=== PATIENT | male | born 1975 | race Caucasian/White ===

== ENCOUNTER 2020-12-28 23:08 | Emergency (ER) | payer BC, SELFPAY ==
[2020-12-28 23:08] VITALS: BP 120/94; PULSE 114; RESP 18; TEMP 36.6; O2SAT 97; BMI 27.0
[2020-12-28] MEDS: Ketorolac 60 MG/2 ML Vial IM (23:34)
--- NOTE | 2020-12-28 23:39 | RAD_ITS ---
EXAM: XR LEFT RIBS AND AP CHEST, 3 OR MORE VIEWS : 1975 CLINICAL INDICATION: left sided rib pain after a kick ball game. pt states ribs hurt while lying down. TECHNIQUE: Frontal and oblique views of the left ribs and frontal view of the chest. This report was created using [employer] report generation technology. COMPARISON: None. FINDINGS: LUNGS AND PLEURAL SPACES: Unremarkable. No consolidation or edema. No pneumothorax. No effusion. HEART: Unremarkable. Cardiac silhouette not enlarged. MEDIASTINUM: Central airways and mediastinal contour are unremarkable. BONES/JOINTS: Unremarkable. No evidence of displaced rib fractures. RAD/Ribs Uni Min 3V w/PA Chest IMPRESSION: Negative chest and left ribs series. at 0005 Reported and signed by: Devin Trotter MD Electronically Signed: Devin Trotter MD at 0:04 EDT Tel , Service support ,
--- NOTE | 2020-12-29 00:15 | EX.ED.GENINJ ---
HPI History of Present Illness Chief Complaint: Other, Pain/Inj Informant: patient Narrative Narrative: 45-year-old male states that about a week ago he was playing kickball and he dove headfirst towards the base. He states that he has sore bilateral shoulders. He also has had chest discomfort/pain. He was letting it heal up and was taking it easy this weekend. When he went to lay down in bed tonight he felt a pop in the left lower anterior chest he became concerned and came to emergency. PFSH PFSH no medical history Home Medications hydrocodone-acetaminophen 1 tab PO Q6H PRN PRN 3 Days #12 tablet 12/29/20 [Rx Last Taken Unknown] naproxen 500 mg PO BID #14 tab 12/29/20 [Rx Last Taken Unknown] Allergy/AdvReac Type Severity Reaction Status Date / Time No Known Allergies Allergy Verified 12/28/20 23:11 Social History (Updated 12/29/20 @ 00:[address] Grant Miller, DO) Smoking Status: Never smoker substance use type: does not use ROS ROS ED Constitutional Constitutional ED: Denies chills or weight loss Eyes Eyes: Denies change in vision or diplopia ENT ENT ED: Denies ear pain, rhinorrhea or sore throat Cardiovascular Cardiovascular: Reports chest pain; Denies orthopnea, palpitations or racing heartbeat Respiratory/Chest Respiratory/Chest: Denies cough, dyspnea or orthopnea Gastrointestinal Gastrointestinal: Denies abdominal pain, diarrhea, nausea or vomiting Genitourinary Genitourinary ED: Denies dysuria, hematuria or urinary frequency Musculoskeletal Musculoskeletal: Reports other Details: Bilateral shoulder pain ; Denies arthralgias or myalgias Integumentary Denies abscess or rash Neurologic Neurologic: Denies headache(s) or weakness Psychiatric Psychiatric: Denies anxiety, depression, suicidal ideation or suicidal thoughts Endocrine Endocrinology: Denies polydipsia, polyphagia or polyuria Allergic/Immunologic Allergic/Immunologic ED: Denies mouth swelling, tongue swelling or urticaria EXAM Physical Exam Const Vital Signs: 12/28/20 23:08 12/28/20 23:58 Temperature 97.9 F Temperature Source Temporal Pulse Rate 114 H Respiratory Rate 18 Respiratory Effort Normal Respiratory Pattern Normal Blood Pressure 120/94 H Blood Pressure Mean 102 Pulse Ox 97 Oxygen Delivery Method Room Air Positive well nourished and well developed General Appearance ED: well developed HEENT Reports normocephalic, head/scalp atraumatic and moist mucous membranes Eyes PERRL and EOMs intact bilaterally Neck no lymphadenopathy, supple and no JVD Chest Wall Chest Narrative: Patient has tenderness to palpation along the left lower anterior costochondral border around rib 9 and 10. There is no significant deformity. Resp normal respiratory effort and clear to auscultation bilaterally Cardio regular rate, regular rhythm and no murmurs GI normal to inspection, nondistended, normoactive bowel sounds and non-tender Palpation: soft Back/Spine no CVA tenderness and normal ROM Extremity Extremity Narrative: Patient has painful range of motion of the bilateral shoulders but full motion. Negative empty beer can test. Negative apprehension test. General Extremety ED: Negative for edema General Extremity: Negative for edema Neuro oriented x3 and CN's II-XII intact bilaterally Sensorium / Orientation: alert Motor Exam: strength 5/5 throughout Psych mental status grossly normal Mood & Affect: Negative for depressed or tearful Skin no rashes or lesions noted and no wounds MDM MDM MDM Narrative Medical decision making narrative: My interpretation of the rib series is no acute fracture. I suspect the patient had a costochondral separation. Patient received a dose of Toradol. I will write him pain medication. Follow-up with orthopedics if not improving Radiography Diagnostic Testing: Radiology Impression Ribs w/Chest X-Ray 12/28/20 23:39 IMPRESSION: Negative chest and left ribs series. at 0005 Reported and signed by: Devin Trotter MD Electronically Signed: Devin Trotter MD at 0:04 EDT Tel , Service support , Discharge Plan Triage Chief Complaint: Other, Pain/Inj ED Provider: Grant Miller Dx/Rx/DC Orders Clinical Impression: Costochondral separation Instructions: ED Contusion, Rib Prescriptions: New hydrocodone-acetaminophen [hydrocodone-acetaminophen] 1 TABLET tablet 1 tab PO Q6H PRN PRN (Reason: Pain) 3 Days Qty: 12 RF: 0 naproxen 500 MG tablet 500 mg PO BID Qty: 14 RF: 0 Disposition Disposition: Home, self care
[2020-12-29 00:32] VITALS: BP 118/60; PULSE 92; RESP 18; O2SAT 96
== END 2020-12-29 00:34 | disposition home or self-care (01) ==
PROVIDERS: Emergency Provider Emergency Medicine
DX: S23.41XA Sprain of ribs, initial encounter (principal); Y93.6A Activity, physical games generally associated with school recess, summer camp and children
CPT/HCPCS: 71101; 96372; 99282

== ENCOUNTER 2021-09-12 20:41 | Emergency (ER) | payer BC, SELFPAY ==
[2021-09-12 20:42] VITALS: BP 117/90; PULSE 108; RESP 16; TEMP 36.2; O2SAT 98; BMI 26.6
--- NOTE | 2021-09-12 20:54 | EX.ED.UPPERE ---
HPI History of Present Illness Chief Complaint: Upper Extremity Injury Narrative Narrative: Patient presents with pain and swelling of his left elbow that began today. He just noticed it. He states he went out to have dinner with his friends and was wearing a coat. He did have his elbows on the table. He denies any fall or anything, but noticed a large amount of swelling around his left elbow. He denies any fevers or chills. He did not fall onto the area with a major trauma. He is right-hand dominant. PFSH PFSH Home Medications ibuprofen 600 mg PO Q8H PRN PRN #20 tab 09/12/21 [Rx Last Taken Unknown] Allergy/AdvReac Type Severity Reaction Status Date / Time No Known Allergies Allergy Verified 09/12/21 20:44 Social History Smoking Status: Never smoker substance use type: does not use ROS ROS ED ROS Narrative Constitutional: No fever, no chills. HEENT: No sore throat. No neck pain. No loss of vision. No rhinorrhea. Cardiovascular: No chest pain. No palpitations. No pedal edema. Respiratory: No cough, no shortness of breath. Abdominal: No abdominal pain. No nausea. No vomiting. Genitourinary: No dysuria. No hematuria. Musculoskeletal: No myalgias. Left elbow pain, and swelling. He states that starting to feel stiff. Neurologic: No headaches. No dizziness. No lightheadedness. Skin: No rash. No change in color. Psychiatric: No depression. No anxiety. EXAM Physical Exam Narrative Exam Narrative: Afebrile. Vital signs noted. HEENT: Normocephalic. Atraumatic. PERRL, EOMI. Neck soft and supple. No point tenderness or step off. Cardiovascular: Regular rate and rhythm. No murmurs, rubs, or gallops appreciated. Respiratory: No tachypnea. Lungs clear to auscultation bilaterally. Gastrointestinal: Abdomen soft, nontender, with normoactive bowel sounds. No rebound or guarding. Neurological: Awake. Alert. Nonfocal, nonlateralizing. Skin: No rash. Normal color. No pallor. Musculoskeletal: No pedal edema. Positive swelling left olecranon bursa, large amount of swelling without erythema. Able to flex and extend forearm. Pronation and supination intact. Palpable radial pulse. Const Vital Signs: 09/12/21 20:42 Temperature 97.2 F L Temperature Source Temporal Pulse Rate 108 H Respiratory Rate 16 Blood Pressure 117/90 H Blood Pressure Mean 99 Pulse Ox 98 Oxygen Delivery Method Room Air MDM MDM MDM Narrative Medical decision making narrative: I do feel that this may be olecranon bursitis from repeated microtrauma. He denies being on blood thinners so I do not think that is a spontaneous hematoma. X-rays were obtained of the left elbow. I will discuss the patient with Dr. Juan on-call for orthopedics. X-ray is negative for fracture. There is soft tissue swelling about the olecranon process. Dr. Juan suggested an Juan wrap, and ibuprofen 600 mg 3 times a day. He will follow up with him in the office for possible drainage of the olecranon bursitis. Return instructions were reviewed. Disposition is discharged home in stable condition. Discharge Plan Triage Chief Complaint: Upper Extremity Injury ED Provider: Tye Viramontes Dx/Rx/DC Orders Clinical Impression: Olecranon bursitis Instructions: ED Bursitis Elbow Olecranon Prescriptions: New ibuprofen 600 mg tablet 600 mg PO Q8H PRN PRN (Reason: pain) Qty: 20 RF: 0 Primary Care Provider: Mery Givens Referrals: Mery Givens DO [Primary Care Provider] - Wilfredo Juan MD [STAFF PHYSICIAN] - 2 Days Disposition Disposition: Home, Self Care
--- NOTE | 2021-09-12 21:00 | RAD_ITS ---
EXAM: XR LEFT ELBOW COMPLETE, 3 OR MORE VIEWS : 1975 CLINICAL INDICATION: pain, swelling TECHNIQUE: Frontal, lateral and oblique views of the left elbow. This report was created using [employer] report generation technology. COMPARISON: None. FINDINGS: BONES/JOINTS: Unremarkable. There is no displacement of the anterior or posterior fat pads. No acute fracture. No subluxation. Normal alignment. Preservation of the joint space. No destructive or sclerotic lesions. SOFT TISSUES: There is soft tissue swelling over the olecranon. No radiopaque foreign body. RAD/Elbow min 3 Views IMPRESSION: Soft tissue swelling with no osseous abnormality. at 2127 Reported and signed by: Devin Trotter MD Electronically Signed: Devin Trotter MD at 21:26 EST ,
[2021-09-12 21:58] VITALS: BP 123/82; PULSE 96; RESP 18
== END 2021-09-12 21:59 | disposition home or self-care (01) ==
PROVIDERS: Emergency Provider Emergency Medicine; Visit Provider Emergency Medicine
DX: M70.22 Olecranon bursitis, left elbow (principal)
CPT/HCPCS: 73080; 99283

== ENCOUNTER → 2025-04-16 | Outpatient (CLI) | payer OTHER, SELFPAY ==
--- OUTSIDE RECORDS SUMMARY | 2025-04-16 06:52 | XMS RPT_ITS | CCD ---
Author Organization [facility] Care Team Providers Care Laboratory Courier Name Role Phone Unavailable Primary Care Provider Taye WELLS DO, DR BAZAN Primary Care Physician PRISCILLA CHAVEZ, DR BAZAN Attending Unavailable PRISCILLA CHAVEZ, DR BAZAN Primary Care Unavailable PRISCILLA CHAVEZ, DR BAZAN Primary Care Unavailable MUKESH GAMBINO, DR CARMICHAEL Attending Taye WELLS DO, DR BAZAN Attending Unavailable PRISCILLA CHAVEZ, DR BAZAN Primary Care Unavailable Medications Current Medications Medication Drug Class(es) Dates Sig (Normalized) Sig (Original) methylPREDNISolone Dosepak 4 mg tablet (1 source) Start: 09-15-2021 End: 09-21-2021 methylPREDNISolone Dosepak 4 mg tablet 1 packet(s), Oral, qDay, as directed on package labeling, # 21 tab(s), 0 Refill(s) Start Date: 09/15/21 Stop Date: 09/21/21 Status: Ordered omeprazole 20 mg delayed release oral capsule (4 sources) Proton Pump Inhibitor Start: 12-30-2023 omeprazole 20 mg oral delayed release capsule Dose : 20 mg = 1 cap(s), Oral, qDay, # 90 cap(s), 0 Refill(s), Pharmacy: [facility]/pharmacy #[id number], 174, cm, 12/30/23 10:19:00 EDT, Height, kg, 12/30/23 10:19:00 EDT, Dosing Weight Start Date: 12/30/23 Status: Ordered Quantity: 90.0 Unit: cap(s) Repeat number: 1 Start: 02-06-2020 End: 05-06-2020 omeprazole 20 mg oral delaye d release capsule Dose : 20 mg = 1 cap(s), Oral, qDay, # 30 cap(s), 2 Refill(s), Pharmacy: [facility] GERD (gastroesophageal reflux disease), 174.5, cm, 02/06/20 15:48:00 EDT, Height, kg, 02/06/20 15:48:00 EDT, Dosing Weight Start Date: 02/06/20 Stop Date: 05/06/20 Status: Ordered Problems Problem Classification Problem Date Documented Date Episodic/Chronic Disorders of teeth and jaw (5 sources) Dental caries 04-25-2020 Episodic Esophageal disorders (5 sources) Gastroesophageal reflux disease 04-25-2020 Chronic Other screening for suspected conditions (not mental disorders or infectious disease) (2 sources) Encounter for screening for malignant neoplasm of prostate; Translations: [Screening for malignant neoplasm done] Onset: 01-17-2025 Episodic Results Test Name Value Interpretation Reference Range Facility .Auto Diffon 01-17-2025 Basophil, Absolute 0.0 10 3/mcL Normal 0.0-0.3 [facility] Comment on above: Performed By: #### L IPID, CBC, ADIFF, ANEU, PSA, GFR, CMP #### [address] [address] Basophils/100 WBC (Bld) 0.3 % Normal 0.0-2.5 [facility] Comment on above: Performed By: #### L IPID, CBC, ADIFF, ANEU, PSA, GFR, CMP #### [address] [address] Eosinophil, Absolute 0.0 10 3/mcL Normal 0.0-0.7 [facility] Comment on above: Performed By: #### L IPID, CBC, ADIFF, ANEU, PSA, GFR, CMP #### [address] [address] Eosinophils/100 WBC (Bld) 0.7 % Normal 0.0-6.0 [facility] Comment on above: Performed By: #### L IPID, CBC, ADIFF, ANEU, PSA, GFR, CMP #### [address] [address] Lymphocyte, Absolute 1.7 10 3/mcL Normal 0.9-4.3 [facility] Comment on above: Performed By: #### L IPID, CBC, ADIFF, ANEU, PSA, GFR, CMP #### [address] [address] Lymphocytes/100 WBC (Bld) 25.6 % Normal 20.0-40.0 [facility] Comment on above: Performed By: #### L IPID, CBC, ADIFF, ANEU, PSA, GFR, CMP #### [address] [address] Monocyte, Absolute 0.6 10 3/mcL Normal 0.1-1.4 [facility] Comment on above: Performed By: #### L IPID, CBC, ADIFF, ANEU, PSA, GFR, CMP #### [address] [address] Monocytes/100 WBC (Bld) 9.8 % Normal 2.0-13.0 [facility] Comment on above: Performed By: #### L IPID, CBC, ADIFF, ANEU, PSA, GFR, CMP #### [address] [address] Neutrophils/100 WBC (Bld) 63.6 % Normal 50.0-75.0 [facility] Comment on above: Performed By: #### L IPID, CBC, ADIFF, ANEU, PSA, GFR, CMP #### [address] [address] .GFRon 01-17-2025 Estimated Glomerular Filtration Rate 69 ml/min/1.73sqm Normal [facility] Comment on above: Result Comment: Stages of Chronic Kidney Disease (CKD) Stage Description eGFR(ml/min/1.73 sq.m.) CKD 1 Normal kidney function or >=90 normal kindney function with possible kidney damage (ex. Proteinuria) CKD 2 Kidney damage with mild loss 60-89 of kidney function CKD 3a Mild to moderate loss of kidney 45-59 function CKD 3b Moderate to severe loss of 30-44 of kindey function CKD 4 Severe loss of kidney function 15-29 CKD 5 Kidney failure <15 Note: (go live 2024) the eGFR calculation was updated to the 2020 CKD-EPI creatinine equation without a race factor to calculate the eGFR results. Performed By: #### L IPID, CBC, ADIFF, ANEU, PSA, GFR, CMP #### [place] [address] .NEUABSon 01-17-2025 Neutrophil, Absolute 4.1 10 3/mcL Normal 2.3-8.1 [facility] Comment on above: Performed By: #### L IPID, CBC, ADIFF, ANEU, PSA, GFR, CMP #### [place] [address] CBCon 01-17-2025 Erythrocyte distribution width (RBC) [Ratio] 12.7 % Normal 11.5-15.5 [facility] Comment on above: Performed By: #### L IPID, CBC, ADIFF, ANEU, PSA, GFR, CMP #### [place] [address] Hematocrit (Bld) [Volume fraction] 44.4 % Normal 40.0-52.0 [facility] Comment on above: Performed By: #### L IPID, CBC, ADIFF, ANEU, PSA, GFR, CMP #### [place] [address] Hgb 15.2 G/dL Normal 13.0-17.5 [facility] Comment on above: Performed By: #### L IPID, CBC, ADIFF, ANEU, PSA, GFR, CMP #### [place] [address] MCH (RBC) [Entitic mass] 30.1 pg Normal 27.0-33.0 [facility] Comment on above: Performed By: #### L IPID, CBC, ADIFF, ANEU, PSA, GFR, CMP #### [place] [address] MCHC 34.2 G/dL Normal 32.0-36.0 [facility] Comment on above: Performed By: #### L IPID, CBC, ADIFF, ANEU, PSA, GFR, CMP #### [address] [address] MCV (RBC) [Entitic vol] 88.0 fL Normal 81.0-100.0 [facility] Comment on above: Performed By: #### L IPID, CBC, ADIFF, ANEU, PSA, GFR, CMP #### [address] [address] Platelet 207 10 3/mcL Normal 150-450 [facility] Comment on above: Performed By: #### L IPID, CBC, ADIFF, ANEU, PSA, GFR, CMP #### [address] [address] Platelet mean volume (Bld) [Entitic vol] 8.4 fL Normal 6.4-10.5 [facility] Comment on above: Performed By: #### L IPID, CBC, ADIFF, ANEU, PSA, GFR, CMP #### [address] [address] RBC 5.04 10 6/mcL Normal 4.50-6.00 [facility] Comment on above: Performed By: #### L IPID, CBC, ADIFF, ANEU, PSA, GFR, CMP #### [address] [address] WBC 6.5 10 3/mcL Normal 4.5-10.8 [facility] Comment on above: Performed By: #### L IPID, CBC, ADIFF, ANEU, PSA, GFR, CMP #### [address] [address] CMPon 01-17-2025 Albumin Level 3.8 G/dL Normal 3.5-5.0 [facility] Comment on above: Performed By: #### L IPID, CBC, ADIFF, ANEU, PSA, GFR, CMP #### [address] [address] Albumin/Globulin [Mass ratio] 1.1 {ratio} Normal 1.1-2.5 [facility] Comment on above: Performed By: #### L IPID, CBC, ADIFF, ANEU, PSA, GFR, CMP #### [address] [address] ALP [Catalytic activity/Vol] 98 U/L Normal 40-135 [facility] Comment on above: Performed By: #### L IPID, CBC, ADIFF, ANEU, PSA, GFR, CMP #### [address] [address] ALT [Catalytic activity/Vol] 42 U/L Normal 16-63 [facility] Comment on above: Performed By: #### L IPID, CBC, ADIFF, ANEU, PSA, GFR, CMP #### [address] [address] AST [Catalytic activity/Vol] 23 U/L Normal 10-40 [facility] Comment on above: Performed By: #### L IPID, CBC, ADIFF, ANEU, PSA, GFR, CMP #### [address] [address] Bili Total 0.8 mg/dL Normal 0.2-1.0 [facility] Comment on above: Result Comment: Use of this assay is not recommended for patients undergoing treatment with eltrombopag due to the potential for falsely elevated results. Performed By: #### L IPID, CBC, ADIFF, ANEU, PSA, GFR, CMP #### [address] [address] BUN/Creatinine Ratio 15 ratio Normal 7-27 [facility] Comment on above: Performed By: #### L IPID, CBC, ADIFF, ANEU, PSA, GFR, CMP #### [address] [address] Calcium [Mass/Vol] 9.0 mg/dL Normal 8.4-10.2 [facility] Comment on above: Performed By: #### L IPID, CBC, ADIFF, ANEU, PSA, GFR, CMP #### [address] [address] Chloride [Moles/Vol] 106 mmol/L Normal 98-107 [facility] Comment on above: Performed By: #### L IPID, CBC, ADIFF, ANEU, PSA, GFR, CMP #### [address] [address] CO2 [Moles/Vol] 26 mmol/L Normal 22-29 [facility] Comment on above: Performed By: #### L IPID, CBC, ADIFF, ANEU, PSA, GFR, CMP #### [address] [address] Creatinine [Mass/Vol] 1.26 mg/dL High 0.67-1.17 [facility] Comment on above: Performed By: #### L IPID, CBC, ADIFF, ANEU, PSA, GFR, CMP #### [place] [address] Electrolyte Balance 9.0 mEq/L Normal 4.0-15.0 [facility] Comment on above: Performed By: #### L IPID, CBC, ADIFF, ANEU, PSA, GFR, CMP #### [address] [address] Globulin 3.5 G/dL Normal 2.7-4.4 [facility] Comment on above: Performed By: #### L IPID, CBC, ADIFF, ANEU, PSA, GFR, CMP #### [address] [address] Glucose [Mass/Vol] 89 mg/dL Normal 70-105 [facility] Comment on above: Performed By: #### L IPID, CBC, ADIFF, ANEU, PSA, GFR, CMP #### [address] [address] Potassium [Moles/Vol] 4.6 mmol/L Normal 3.5-5.1 [facility] Comment on above: Performed By: #### L IPID, CBC, ADIFF, ANEU, PSA, GFR, CMP #### [address] [address] Sodium [Moles/Vol] 141 mmol/L Normal 136-145 [facility] Comment on above: Performed By: #### L IPID, CBC, ADIFF, ANEU, PSA, GFR, CMP #### [facility] [address] [place], [place] [address] Total Protein 7.3 G/dL Normal 6.4-8.2 [facility] Comment on above: Performed By: #### L IPID, CBC, ADIFF, ANEU, PSA, GFR, CMP #### [facility] [address] [place], [place] [address] Urea nitrogen [Mass/Vol] 19 mg/dL High 7-18 [facility] Comment on above: Performed By: #### L IPID, CBC, ADIFF, ANEU, PSA, GFR, CMP #### [place] [address] [place], [place] [address] LABORATORYOrdered By: SYSTEM SYSTEM on 01-17-2025 Albumin BCP dye [Mass/Vol] 3.8 G/dL Normal 3.5 - 5.0 G/dL AO ADM SS Albumin/Globulin [Mass ratio] 1.1 {ratio} Normal 1.1 - 2.5 ratio AO ADM SS ALP [Catalytic activity/Vol] 98 U/L Normal 40 - 135 U/L AO ADM SS ALT With P-5'-P [Catalytic activity/Vol] 42 U/L Normal 16 - 63 U/L AO ADM SS AST With P-5'-P [Catalytic activity/Vol] 23 U/L Normal 10 - 40 U/L AO ADM SS Basophils (Bld) [#/Vol] 0.0 103/mcL Normal 0.0 - 0.3 10^3/mcL AO Workflow SS Basophils/100 WBC (Bld) 0.3 % Normal 0.0 - 2.5 % AO Workflow SS Bilirubin [Mass/Vol] 0.8 mg/dL Normal 0.2 - 1 .0 mg/dL AO ADM SS Comment on above: Interpretive Data: U se of this assay is not recommended for patients undergoing treatment with eltrombopag due to the potential for falsely elevated results. Calcium [Mass/Vol] 9.0 mg/dL Normal 8.4 - 10. 2 mg/dL AO ADM SS Chloride [Moles/Vol] 106 mmol/L Normal 98 - 10 7 mmol/L AO ADM SS CO2 [Moles/Vol] 26 mmol/L Normal 22 - 29 mmol/L AO ADM SS Creatinine [Mass/Vol] 1.26 mg/dL High 0.67 - 1.17 mg/dL AO ADM SS Electrolyte Balance 9.0 mEq/L Normal 4.0 - 15 .0 mEq/L AO ADM SS Eosinophil, Absolute 0.0 103/mcL Normal 0.0 - 0 .7 10^3/mcL AO Workflow SS Eosinophils/100 WBC (Bld) 0.7 % Normal 0.0 - 6.0 % AO Workflow SS Erythrocyte distribution width (RBC) [Ratio] 12.7 % Normal 11.5 - 15.5 % AO Workflow SS Estimated Glomerular Filtration Rate 69 ml/min/1.73sqm Invalid Interpretation Code AO Chemistry S Comment on above: Interpretive Data: Stages of Chronic Kidney Disease (CKD) Stage Description eGFR(ml/min/1.73 sq.m.) CKD 1 Normal kidney function or >=90 normal kindney function with possible kidney damage (ex. Proteinuria) CKD 2 Kidney damage with mild loss 60-89 of kidney function CKD 3a Mild to moderate loss of kidney 45-59 function CKD 3b Moderate to severe loss of 30-44 of kindey function CKD 4 Severe loss of kidney function 15-29 CKD 5 Kidney failure <15 Note: (go live 2024) the eGFR calculation was updated to the 2020 CKD-EPI creatinine equation without a race factor to calculate the eGFR results. Globulin 3.5 G/dL Normal 2.7 - 4.4 G/dL AO ADM SS Glucose [Mass/Vol] 89 mg/dL Normal 70 - 105 mg/dL AO ADM SS Hematocrit (Bld) [Volume fraction] 44.4 % Normal 40.0 - 52.0 % AO Workflow SS Hemoglobin (Bld) [Mass/Vol] 15.2 G/dL Normal 13.0 - 17.5 G/dL AO Workflow SS Lymphocytes (Bld) [#/Vol] 1.7 103/mcL Normal 0.9 - 4.3 10^3/mcL AO Workflow SS Lymphocytes/100 WBC (Bld) 25.6 % Normal 20.0 - 40.0 % AO Workflow SS MCH (RBC) [Entitic mass] 30.1 pg Normal 27.0 - 33.0 pg AO Workflow SS MCHC 34.2 G/dL Normal 32.0 - 36.0 G/dL AO Workflow SS MCV (RBC) [Entitic vol] 88.0 fL Normal 81.0 - 100.0 fL AO Workflow SS Monocytes (Bld) [#/Vol] 0.6 103/mcL Normal 0.1 - 1.4 10^3/mcL AO Workflow SS Monocytes/100 WBC (Bld) 9.8 % Normal 2.0 - 13.0 % AO Workflow SS Neutrophils (Bld) [#/Vol] 4.1 103/mcL Normal 2.3 - 8.1 10^3/mcL AO Workflow SS Neutrophils/100 WBC (Bld) 63.6 % Normal 50.0 - 75.0 % AO Workflow SS Platelet mean volume (Bld) [Entitic vol] 8.4 fL Normal 6.4 - 10.5 fL AO Workflow SS Platelets (Bld) [#/Vol] 207 103/mcL Normal 150 - 450 10^3/mcL AO Workflow SS Potassium [Moles/Vol] 4.6 mmol/L Normal 3.5 - 5.1 mmol/L AO ADM SS Prostate specific Ag [Mass/Vol] 0.44 ng/mL Normal 0.00 - 4.00 ng/mL AO ADM SS Protein [Mass/Vol] 7.3 G/dL Normal 6.4 - 8.2 G/dL AO ADM SS RBC (Bld) [#/Vol] 5.04 106/mcL Normal 4.50 - 6.0 0 10^6/mcL AO Workflow SS Sodium [Moles/Vol] 141 mmol/L Normal 136 - 145 mmol/L AO ADM SS Urea nitrogen [Mass/Vol] 19 mg/dL High 7 - 18 mg/dL AO ADM SS Urea nitrogen/Creatinine [Mass ratio] 15 ratio Normal 7 - 27 ratio AO ADM SS WBC (Bld) [#/Vol] 6.5 103/mcL Normal 4.5 - 10.8 10^3/mcL AO Workflow SS LABORATORYOrdered By: Blas Gaines on 01-17-2025 Cholesterol [Mass/Vol] 163 mg/dL Normal 0 - 200 mg/dL AO ADM SS Comment on above: Interpretive Data: C holesterol Reference Interval: Less than 200 Desirable 200-239 Borderline high risk 240 and above High risk Cholesterol in HDL [Mass/Vol] 55 mg/dL Normal 40 - 60 mg/dL AO ADM SS Cholesterol in LDL [Mass/Vol] 98 mg/dL Normal 0 - 130 mg/dL AO ADM SS Triglyceride [Mass/Vol] 51 mg/dL Normal 0 - 150 mg/dL AO ADM SS Comment on above: Interpretive Data: T riglyceride Reference Interval: Less than 150 Normal 150-199 Borderline high risk 200-499 High risk 500 or higher Very high risk LIPIDon 01-17-2025 Cholesterol [Mass/Vol] 163 mg/dL Normal 0-200 [facility] Comment on above: Result Comment: Chol esterol Reference Interval: Less than 200 Desirable 200-239 Borderline high risk 240 and above High risk Performed By: #### L IPID, CBC, ADIFF, ANEU, PSA, GFR, CMP #### [address] [address] Cholesterol in HDL [Mass/Vol] 55 mg/dL Normal 40-60 [facility] Comment on above: Performed By: #### L IPID, CBC, ADIFF, ANEU, PSA, GFR, CMP #### [address] [address] Cholesterol in LDL [Mass/Vol] 98 mg/dL Normal 0-130 [facility] Comment on above: Performed By: #### L IPID, CBC, ADIFF, ANEU, PSA, GFR, CMP #### [address] [address] Triglyceride [Mass/Vol] 51 mg/dL Normal 0-150 [facility] Comment on above: Result Comment: Trig lyceride Reference Interval: Less than 150 Normal 150-199 Borderline high risk 200-499 High risk 500 or higher Very high risk Performed By: #### L IPID, CBC, ADIFF, ANEU, PSA, GFR, CMP #### [address] [address] PSAon 01-17-2025 Prostate Specific Antigen 0.44 ng/mL Normal 0.00-4.00 [facility] Comment on above: Performed By: #### L IPID, CBC, ADIFF, ANEU, PSA, GFR, CMP #### [address] [address] .Auto Diffon 01-07-2024 Basophil, Absolute 0.0 10 3/mcL Normal 0.0-0.2 [facility] ([place]) Comment on above: Performed By: #### C MP, TSH, PSA, ADIFF, CBC, LIPID, ANEU, GFR #### [address] [address] #### HCV1 #### [address] [address] Basophils/100 WBC (Bld) 0.2 % Normal 0.0-2.5 [facility] ([place]) Comment on above: Performed By: #### C MP, TSH, PSA, ADIFF, CBC, LIPID, ANEU, GFR #### [address] [address] #### HCV1 #### [address] [address] Eosinophil, Absolute 0.0 10 3/mcL Normal 0.0-0.4 [facility] ([place]) Comment on above: Performed By: #### C MP, TSH, PSA, ADIFF, CBC, LIPID, ANEU, GFR #### [address] [address] #### HCV1 #### [address] [address] Eosinophils/100 WBC (Bld) 0.5 % Normal 0.0-7.0 [facility] ([place]) Comment on above: Performed By: #### C MP, TSH, PSA, ADIFF, CBC, LIPID, ANEU, GFR #### [address] [address] #### HCV1 #### [address] [address] Lymphocyte, Absolute 1.8 10 3/mcL Normal 0.8-3.9 [facility] ([place]) Comment on above: Performed By: #### C MP, TSH, PSA, ADIFF, CBC, LIPID, ANEU, GFR #### [address] [address] #### HCV1 #### [address] [address] Lymphocytes/100 WBC (Bld) 26.4 % Normal 10.0-50.0 [facility] ([place]) Comment on above: Performed By: #### C MP, TSH, PSA, ADIFF, CBC, LIPID, ANEU, GFR #### [address] [address] #### HCV1 #### [address] [address] Monocyte, Absolute 0.7 10 3/mcL Normal 0.2-1.0 [facility] ([place]) Comment on above: Performed By: #### C MP, TSH, PSA, ADIFF, CBC, LIPID, ANEU, GFR #### [address] [address] #### HCV1 #### [address] [address] Monocytes/100 WBC (Bld) 10.8 % Normal 1.7-13.0 [facility] ([place]) Comment on above: Performed By: #### C MP, TSH, PSA, ADIFF, CBC, LIPID, ANEU, GFR #### [address] [address] #### HCV1 #### [address] [address] Neutrophils/100 WBC (Bld) 62.1 % Normal 37.0-80.0 [facility] ([place]) Comment on above: Performed By: #### C MP, TSH, PSA, ADIFF, CBC, LIPID, ANEU, GFR #### [address] [address] #### HCV1 #### [address] [address] .GFRon 01-07-2024 GFR 78 ml/min/1.73sqm Normal [facility] ([place]) Comment on above: Result Comment: GFR Population mean for , Non- Americans Ages 20-29 = 116 mL/min/1.73 sq.m. Ages 30-39 = 107 mL/min/1.73 sq.m. Ages 40-49 = 99 mL/min/1.73 sq.m. Ages 50-59 = 93 mL/min/1.73 sq.m. Ages 60-69 = 85 mL/min/1.73 sq.m. Ages 70+ = 75 mL/min/1.73 sq.m. Chronic Kidney Disease: Less than 60 mL/min/1.73 square meters End Stage Renal Disease: Less than 15 mL/min/1.73 square meters Performed By: #### C MP, TSH, PSA, ADIFF, CBC, LIPID, ANEU, GFR #### [address] [address] #### HCV1 #### [address] [address] GFR Non- 64 ml/min/1.73sqm Normal [facility] ([place]) Comment on above: Result Comment: GFR Population mean for , Non- Americans Ages 20-29 = 116 mL/min/1.73 sq.m. Ages 30-39 = 107 mL/min/1.73 sq.m. Ages 40-49 = 99 mL/min/1.73 sq.m. Ages 50-59 = 93 mL/min/1.73 sq.m. Ages 60-69 = 85 mL/min/1.73 sq.m. Ages 70+ = 75 mL/min/1.73 sq.m. Chronic Kidney Disease: Less than 60 mL/min/1.73 square meters End Stage Renal Disease: Less than 15 mL/min/1.73 square meters Performed By: #### C MP, TSH, PSA, ADIFF, CBC, LIPID, ANEU, GFR #### [address] [address] #### HCV1 #### [address] [address] .NEUABSon 01-07-2024 Neutrophil, Absolute 4.2 10 3/mcL Normal 2.9-6.2 [facility] ([place]) Comment on above: Performed By: #### C MP, TSH, PSA, ADIFF, CBC, LIPID, ANEU, GFR #### [address] [address] #### HCV1 #### [address] [address] CBCon 01-07-2024 Erythrocyte distribution width (RBC) [Ratio] 12.8 % Normal 11.5-14.5 [facility] ([place]) Comment on above: Performed By: #### C MP, TSH, PSA, ADIFF, CBC, LIPID, ANEU, GFR #### [address] [address] #### HCV1 #### [place] [address] Hematocrit (Bld) [Volume fraction] 43.4 % Normal 42.0-52.0 [facility] ([place]) Comment on above: Performed By: #### C MP, TSH, PSA, ADIFF, CBC, LIPID, ANEU, GFR #### [place] [address] #### HCV1 #### [place] [address] Hgb 14.8 G/dL Normal 14.0-18.0 [facility] ([place]) Comment on above: Performed By: #### C MP, TSH, PSA, ADIFF, CBC, LIPID, ANEU, GFR #### [place] [address] #### HCV1 #### [place] [address] MCH (RBC) [Entitic mass] 30.2 pg Normal 27.0-31.2 [facility] ([place]) Comment on above: Performed By: #### C MP, TSH, PSA, ADIFF, CBC, LIPID, ANEU, GFR #### [place] [address] #### HCV1 #### [place] [address] MCHC 34.1 G/dL Normal 31.8-35.4 [facility] ([place]) Comment on above: Performed By: #### C MP, TSH, PSA, ADIFF, CBC, LIPID, ANEU, GFR #### [place] [address] #### HCV1 #### [place] [address] MCV (RBC) [Entitic vol] 88.8 fL Normal 80.0-94.0 [facility] ([place]) Comment on above: Performed By: #### C MP, TSH, PSA, ADIFF, CBC, LIPID, ANEU, GFR #### [address] [address] #### HCV1 #### [place] [address] Platelet 208 10 3/mcL Normal 130-400 [facility] ([place]) Comment on above: Performed By: #### C MP, TSH, PSA, ADIFF, CBC, LIPID, ANEU, GFR #### [place] [address] #### HCV1 #### [place] [address] Platelet mean volume (Bld) [Entitic vol] 8.6 fL Normal 7.4-10.4 [facility] ([place]) Comment on above: Performed By: #### C MP, TSH, PSA, ADIFF, CBC, LIPID, ANEU, GFR #### [place] [address] #### HCV1 #### [place] [address] RBC 4.89 10 6/mcL Normal 4.04-6.13 [facility] ([place]) Comment on above: Performed By: #### C MP, TSH, PSA, ADIFF, CBC, LIPID, ANEU, GFR #### [place] [address] #### HCV1 #### [place] [address] WBC 6.7 10 3/mcL Normal 4.6-10.8 [facility] ([place]) Comment on above: Performed By: #### C MP, TSH, PSA, ADIFF, CBC, LIPID, ANEU, GFR #### [place] [address] #### HCV1 #### [address] [address] CMPon 01-07-2024 Albumin Level 4.0 G/dL Normal 3.5-5.0 [facility] ([place]) Comment on above: Performed By: #### C MP, TSH, PSA, ADIFF, CBC, LIPID, ANEU, GFR #### [address] [address] #### HCV1 #### [place] [address] Albumin/Globulin [Mass ratio] 1.3 {ratio} Normal 1.1-2.5 [facility] ([place]) Comment on above: Performed By: #### C MP, TSH, PSA, ADIFF, CBC, LIPID, ANEU, GFR #### [address] [address] #### HCV1 #### [place] [address] ALP [Catalytic activity/Vol] 120 U/L Normal 40-135 [facility] ([place]) Comment on above: Performed By: #### C MP, TSH, PSA, ADIFF, CBC, LIPID, ANEU, GFR #### [address] [address] #### HCV1 #### [address] [address] ALT [Catalytic activity/Vol] 48 U/L Normal 16-63 [facility] ([place]) Comment on above: Performed By: #### C MP, TSH, PSA, ADIFF, CBC, LIPID, ANEU, GFR #### [address] [address] #### HCV1 #### [address] [address] AST [Catalytic activity/Vol] 22 U/L Normal 10-40 [facility] ([place]) Comment on above: Performed By: #### C MP, TSH, PSA, ADIFF, CBC, LIPID, ANEU, GFR #### [place] [address] #### HCV1 #### [address] [address] Bili Total 0.9 mg/dL Normal 0.2-1.0 [facility] ([place]) Comment on above: Result Comment: Use of this assay is not recommended for patients undergoing treatment with eltrombopag due to the potential for falsely elevated results. Performed By: #### C MP, TSH, PSA, ADIFF, CBC, LIPID, ANEU, GFR #### [place] [address] #### HCV1 #### [place] [address] BUN/Creatinine Ratio 12 ratio Normal 7-27 [facility] ([place]) Comment on above: Performed By: #### C MP, TSH, PSA, ADIFF, CBC, LIPID, ANEU, GFR #### [place] [address] #### HCV1 #### [place] [address] Calcium [Mass/Vol] 8.9 mg/dL Normal 8.4-10.2 [facility] ([place]) Comment on above: Performed By: #### C MP, TSH, PSA, ADIFF, CBC, LIPID, ANEU, GFR #### [place] [address] #### HCV1 #### [address] [address] Chloride [Moles/Vol] 106 mmol/L Normal 98-107 [facility] ([place]) Comment on above: Performed By: #### C MP, TSH, PSA, ADIFF, CBC, LIPID, ANEU, GFR #### [address] [address] #### HCV1 #### [address] [address] CO2 [Moles/Vol] 26 mmol/L Normal 22-29 [facility] ([place]) Comment on above: Performed By: #### C MP, TSH, PSA, ADIFF, CBC, LIPID, ANEU, GFR #### [address] [address] #### HCV1 #### [address] [address] Creatinine [Mass/Vol] 1.20 mg/dL Normal 0.70-1.30 [facility] ([place]) Comment on above: Performed By: #### C MP, TSH, PSA, ADIFF, CBC, LIPID, ANEU, GFR #### [address] [address] #### HCV1 #### [address] [address] Electrolyte Balance 9.0 mEq/L Normal 4.0-15.0 [facility] ([place]) Comment on above: Performed By: #### C MP, TSH, PSA, ADIFF, CBC, LIPID, ANEU, GFR #### [address] [address] #### HCV1 #### [address] [address] Globulin 3.0 G/dL Normal [facility] ([place]) Comment on above: Performed By: #### C MP, TSH, PSA, ADIFF, CBC, LIPID, ANEU, GFR #### [address] [address] #### HCV1 #### [address] [address] Glucose [Mass/Vol] 96 mg/dL Normal 70-105 [facility] ([place]) Comment on above: Performed By: #### C MP, TSH, PSA, ADIFF, CBC, LIPID, ANEU, GFR #### [address] [address] #### HCV1 #### [address] [address] Potassium [Moles/Vol] 5.4 mmol/L High 3.5-5.1 [facility] ([place]) Comment on above: Performed By: #### C MP, TSH, PSA, ADIFF, CBC, LIPID, ANEU, GFR #### [place] [address] #### HCV1 #### [place] [address] Sodium [Moles/Vol] 141 mmol/L Normal 136-145 [facility] ([place]) Comment on above: Performed By: #### C MP, TSH, PSA, ADIFF, CBC, LIPID, ANEU, GFR #### [place] [address] #### HCV1 #### [place] [address] Total Protein 7.0 G/dL Normal 6.4-8.2 [facility] ([place]) Comment on above: Performed By: #### C MP, TSH, PSA, ADIFF, CBC, LIPID, ANEU, GFR #### [place] [address] #### HCV1 #### [place] [address] Urea nitrogen [Mass/Vol] 15 mg/dL Normal 7-18 [facility] ([place]) Comment on above: Performed By: #### C MP, TSH, PSA, ADIFF, CBC, LIPID, ANEU, GFR #### [place] [address] #### HCV1 #### [place] [address] HCVon 01-07-2024 Hep C Ab Non-Reactive Normal Non-Reactive [facility] ([place]) Comment on above: Performed By: #### C MP, TSH, PSA, ADIFF, CBC, LIPID, ANEU, GFR #### [place] [address] #### HCV1 #### [place] [address] Hep C Ab Int Normal [facility] ([place]) Comment on above: Result Comment: Nonr eactive: Samples with a value < 0.80 are considered nonreactive (negative) for antibodies to HCV. A negative test result does not exclude the possibility of exposure to or infection with HCV. HCV antibodies may be undetectable in some stages of the infection and in some clinical conditions. See Interp Performed By: #### C MP, TSH, PSA, ADIFF, CBC, LIPID, ANEU, GFR #### [place] [address] [place], [place] [address] #### HCV1 #### [address] [address] LABORATORYOrdered By: SYSTEM SYSTEM on 01-07-2024 Albumin BCP dye [Mass/Vol] 4.0 G/dL Normal 3.5 - 5.0 G/dL AO ADM SS Albumin/Globulin [Mass ratio] 1.3 {ratio} Normal 1.1 - 2.5 ratio AO ADM SS ALP [Catalytic activity/Vol] 120 U/L Normal 40 - 135 U/L AO ADM SS ALT With P-5'-P [Catalytic activity/Vol] 48 U/L Normal 16 - 63 U/L AO ADM SS AST With P-5'-P [Catalytic activity/Vol] 22 U/L Normal 10 - 40 U/L AO ADM SS Basophil, Absolute 0.0 103/mcL Normal 0.0 - 0.2 10^3/mcL AO Workflow SS Basophils/100 WBC (Bld) 0.2 % Normal 0.0 - 2.5 % AO Workflow SS Bilirubin [Mass/Vol] 0.9 mg/dL Normal 0.2 - 1 .0 mg/dL AO ADM SS Comment on above: Interpretive Data: U se of this assay is not recommended for patients undergoing treatment with eltrombopag due to the potential for falsely elevated results. Calcium [Mass/Vol] 8.9 mg/dL Normal 8.4 - 10. 2 mg/dL AO ADM SS Chloride [Moles/Vol] 106 mmol/L Normal 98 - 10 7 mmol/L AO ADM SS CO2 [Moles/Vol] 26 mmol/L Normal 22 - 29 mmol/L AO ADM SS Creatinine [Mass/Vol] 1.20 mg/dL Normal 0.70 - 1.30 mg/dL AO ADM SS Electrolyte Balance 9.0 mEq/L Normal 4.0 - 15 .0 mEq/L AO ADM SS Eosinophil, Absolute 0.0 103/mcL Normal 0.0 - 0 .4 10^3/mcL AO Workflow SS Eosinophils/100 WBC (Bld) 0.5 % Normal 0.0 - 7.0 % AO Workflow SS Erythrocyte distribution width (RBC) [Ratio] 12.8 % Normal 11.5 - 14.5 % AO Workflow SS GFR/1.73 sq M.predicted among blacks MDRD (S/P/Bld) [Vol rate/Area] 78 ml/min/1.73sqm Invalid Interpretation Code AO Chemistry S Comment on above: Interpretive Data: GFR Population mean for , Non- Americans Ages 20-29 = 116 mL/min/1.73 sq.m. Ages 30-39 = 107 mL/min/1.73 sq.m. Ages 40-49 = 99 mL/min/1.73 sq.m. Ages 50-59 = 93 mL/min/1.73 sq.m. Ages 60-69 = 85 mL/min/1.73 sq.m. Ages 70+ = 75 mL/min/1.73 sq.m. Chronic Kidney Disease: Less than 60 mL/min/1.73 square meters End Stage Renal Disease: Less than 15 mL/min/1.73 square meters GFR/1.73 sq M.predicted among non-blacks MDRD (S/P/Bld) [Vol rate/Area] 64 ml/min/1.73sqm Invalid Interpretation Code AO Chemistry S Comment on above: Interpretive Data: GFR Population mean for , Non- Americans Ages 20-29 = 116 mL/min/1.73 sq.m. Ages 30-39 = 107 mL/min/1.73 sq.m. Ages 40-49 = 99 mL/min/1.73 sq.m. Ages 50-59 = 93 mL/min/1.73 sq.m. Ages 60-69 = 85 mL/min/1.73 sq.m. Ages 70+ = 75 mL/min/1.73 sq.m. Chronic Kidney Disease: Less than 60 mL/min/1.73 square meters End Stage Renal Disease: Less than 15 mL/min/1.73 square meters Globulin 3.0 G/dL Invalid Interpretation Code AO ADM SS Glucose [Mass/Vol] 96 mg/dL Normal 70 - 105 mg/dL AO ADM SS Hematocrit (Bld) [Volume fraction] 43.4 % Normal 42.0 - 52.0 % AO Workflow SS Hemoglobin (Bld) [Mass/Vol] 14.8 G/dL Normal 14.0 - 18.0 G/dL AO Workflow SS Lymphocyte, Absolute 1.8 103/mcL Normal 0.8 - 3 .9 10^3/mcL AO Workflow SS Lymphocytes/100 WBC (Bld) 26.4 % Normal 10.0 - 50.0 % AO Workflow SS MCH (RBC) [Entitic mass] 30.2 pg Normal 27.0 - 31.2 pg AO Workflow SS MCHC 34.1 G/dL Normal 31.8 - 35.4 G/dL AO Workflow SS MCV (RBC) [Entitic vol] 88.8 fL Normal 80.0 - 94.0 fL AO Workflow SS Monocyte, Absolute 0.7 103/mcL Normal 0.2 - 1.0 10^3/mcL AO Workflow SS Monocytes/100 WBC (Bld) 10.8 % Normal 1.7 - 13.0 % AO Workflow SS Neutrophil, Absolute 4.2 103/mcL Normal 2.9 - 6 .2 10^3/mcL AO Workflow SS Neutrophils/100 WBC (Bld) 62.1 % Normal 37.0 - 80.0 % AO Workflow SS Platelet mean volume (Bld) [Entitic vol] 8.6 fL Normal 7.4 - 10.4 fL AO Workflow SS Platelets (Bld) [#/Vol] 208 103/mcL Normal 130 - 400 10^3/mcL AO Workflow SS Potassium [Moles/Vol] 5.4 mmol/L High 3.5 - 5.1 mmol/L AO ADM SS Prostate specific Ag [Mass/Vol] 0.61 ng/mL Normal 0.00 - 4.00 ng/mL AO ADM SS Protein [Mass/Vol] 7.0 G/dL Normal 6.4 - 8.2 G/dL AO ADM SS RBC (Bld) [#/Vol] 4.89 106/mcL Normal 4.04 - 6.1 3 10^6/mcL AO Workflow SS Sodium [Moles/Vol] 141 mmol/L Normal 136 - 145 mmol/L AO ADM SS TSH Qn 1.68 m[IU]/L Normal 0.36 - 3.74 mcIU/mL AO ADM SS Urea nitrogen [Mass/Vol] 15 mg/dL Normal 7 - 18 mg/dL AO ADM SS Urea nitrogen/Creatinine [Mass ratio] 12 ratio Normal 7 - 27 ratio AO ADM SS WBC (Bld) [#/Vol] 6.7 103/mcL Normal 4.6 - 10.8 10^3/mcL AO Workflow SS LABORATORYOrdered By: Lino Douglass on 01-07-2024 Cholesterol [Mass/Vol] 176 mg/dL Normal 0 - 200 mg/dL AO ADM SS Comment on above: Interpretive Data: C holesterol Reference Interval: Less than 200 Desirable 200-239 Borderline high risk 240 and above High risk Cholesterol in HDL [Mass/Vol] 65 mg/dL High 40 - 60 mg/dL AO ADM SS Cholesterol in LDL [Mass/Vol] 101 mg/dL Normal 0 - 130 mg/dL AO ADM SS Triglyceride [Mass/Vol] 49 mg/dL Normal 0 - 150 mg/dL AO ADM SS Comment on above: Interpretive Data: T riglyceride Reference Interval: Less than 150 Normal 150-199 Borderline high risk 200-499 High risk 500 or higher Very high risk LABORATORYOrdered By: Guanaco Godinez on 01-07-2024 HCV Ab IA Ql Non-Reactive (01/07/24 10:09 AM) Normal Non-Reactive AH ADM SS HCV Ab IA Ql Nonreactive: Samples with a value < 0.80 are considered nonreactive (negative) for antibodies to HCV.A negative test result does not exclude the possibility of exposure to or infection with HCV. HCV antibodies may be undetectable in some stages of the infection and in some clinical conditions. Invalid Interpretation Code Chemistry S LIPIDon 01-07-2024 Cholesterol [Mass/Vol] 176 mg/dL Normal 0-200 [facility] ([place]) Comment on above: Result Comment: Chol esterol Reference Interval: Less than 200 Desirable 200-239 Borderline high risk 240 and above High risk Performed By: #### C MP, TSH, PSA, ADIFF, CBC, LIPID, ANEU, GFR #### [address] [address] #### HCV1 #### [address] [address] Cholesterol in HDL [Mass/Vol] 65 mg/dL High 40-60 [facility] ([place]) Comment on above: Performed By: #### C MP, TSH, PSA, ADIFF, CBC, LIPID, ANEU, GFR #### [address] [address] #### HCV1 #### [place] [address] Cholesterol in LDL [Mass/Vol] 101 mg/dL Normal 0-130 [facility] ([place]) Comment on above: Performed By: #### C MP, TSH, PSA, ADIFF, CBC, LIPID, ANEU, GFR #### [address] [address] #### HCV1 #### [place] [address] Triglyceride [Mass/Vol] 49 mg/dL Normal 0-150 [facility] ([place]) Comment on above: Result Comment: Trig lyceride Reference Interval: Less than 150 Normal 150-199 Borderline high risk 200-499 High risk 500 or higher Very high risk Performed By: #### C MP, TSH, PSA, ADIFF, CBC, LIPID, ANEU, GFR #### [place] [address] #### HCV1 #### [place] [address] PSAon 01-07-2024 Prostate Specific Antigen 0.61 ng/mL Normal 0.00-4.00 [facility] ([place]) Comment on above: Performed By: #### C MP, TSH, PSA, ADIFF, CBC, LIPID, ANEU, GFR #### [address] [address] #### HCV1 #### [place] [address] TSHon 01-07-2024 TSH Qn 1.68 m[IU]/L Normal 0.36-3.74 [facility] ([place]) Comment on above: Performed By: #### C MP, TSH, PSA, ADIFF, CBC, LIPID, ANEU, GFR #### [address] [address] #### HCV1 #### [place] [address] LABORATORYOrdered By: Lino Douglass on 09-18-2021 Albumin BCP dye [Mass/Vol] 4.2 G/dL Invalid Interpretation Code 3.5 - 5.0 G/dL AO ADM SS Albumin/Globulin [Mass ratio] 1.4 {ratio} Invalid Interpretation Code 1.1 - 2.5 ratio AO ADM SS ALP [Catalytic activity/Vol] 112 U/L Invalid Interpretation Code 40 - 135 U/L AO ADM SS ALT With P-5'-P [Catalytic activity/Vol] 41 U/L Invalid Interpretation Code 16 - 63 U/L AO ADM SS AST With P-5'-P [Catalytic activity/Vol] 16 U/L Invalid Interpretation Code 10 - 40 U/L AO ADM SS Bilirubin [Mass/Vol] 0.8 mg/dL Invalid Interpretation Code 0.2 - 1.0 mg/dL AO ADM SS Calcium [Mass/Vol] 8.8 mg/dL Invalid Interpretation Code 8.4 - 10.2 mg/dL AO ADM SS Chloride [Moles/Vol] 103 mmol/L Invalid Interpretation Code 98 - 107 mmol/L AO ADM SS Cholesterol [Mass/Vol] 199 mg/dL Invalid Interpretation Code 0 - 200 mg/dL AO ADM SS Cholesterol in HDL [Mass/Vol] 69 mg/dL Invalid Interpretation Code 40 - 60 mg/dL AO ADM SS Cholesterol in LDL [Mass/Vol] 112 mg/dL Invalid Interpretation Code 0 - 130 mg/dL AO ADM SS CO2 [Moles/Vol] 27 mmol/L Invalid Interpretation Code 22 - 29 mmol/L AO ADM SS Creatinine [Mass/Vol] 1.22 mg/dL Invalid Interpretation Code 0.70 - 1.30 mg/dL AO ADM SS Electrolyte Balance 10.0 mEq/L Invalid Interpretation Code 4.0 - 15.0 mEq/L AO ADM SS Globulin 3.0 G/dL Invalid Interpretation Code AO ADM SS Glucose [Mass/Vol] 95 mg/dL Invalid Interpretation Code 70 - 105 mg/dL AO ADM SS Potassium [Moles/Vol] 4.4 mmol/L Invalid Interpretation Code 3.5 - 5.1 mmol/L AO ADM SS Prostate specific Ag [Mass/Vol] 0.48 ng/mL Invalid Interpretation Code 0.00 - 4.00 ng/mL AO ADM SS Protein [Mass/Vol] 7.2 G/dL Invalid Interpretation Code 6.4 - 8.2 G/dL AO ADM SS Sodium [Moles/Vol] 140 mmol/L Invalid Interpretation Code 136 - 145 mmol/L AO ADM SS Triglyceride [Mass/Vol] 91 mg/dL Invalid Interpretation Code 0 - 150 mg/dL AO ADM SS Urea nitrogen [Mass/Vol] 23 mg/dL Invalid Interpretation Code 7 - 18 mg/dL AO ADM SS Urea nitrogen/Creatinine [Mass ratio] 19 ratio Invalid Interpretation Code 7 - 27 ratio AO ADM SS LABORATORYOrdered By: SYSTEM SYSTEM on 09-18-2021 GFR 77 ml/min/1.73sqm Invalid Interpretation Code AO Chemistry S GFR Non- 64 ml/min/1.73sqm Invalid Interpretation Code AO Chemistry S Elbow min 3 Viewson 09-12-19 22 Elbow min 3 Views [facility] Imaging Services [address] [place] [address] Elbow min 3 Views MR#: [id number] Acct: [id number] Name: DEE HOLLOWAY Rep #: [id number] : 1975 M 45 From: Devin Trotter MD PCP: Dr. Hortensia Wells, Status: REG ER Study: Elbow min 3 Views Date of Exam: 09/12/21 Exam# [id number] Ordering Dr: Tye Viramontes MD EXAM: XR LEFT ELBOW COMPLETE, 3 OR MORE VIEWS : 1975 CLINICAL INDICATION: pain, swelling TECHNIQUE: Frontal, lateral and oblique views of the left elbow. This report was created using [employer] report generation technology. COMPARISON: None. FINDINGS: BONES/JOINTS: Unremarkable. There is no displacement of the anterior or posterior fat pads. No acute fracture. No subluxation. Normal alignment. Preservation of the joint space. No destructive or sclerotic lesions. SOFT TISSUES: There is soft tissue swelling over the olecranon. No radiopaque foreign body. RAD/Elbow min 3 Views IMPRESSION: Soft tissue swelling with no osseous abnormality. at 2127 Reported and signed by: Devin Trotter MD Electronically Signed: Devin Trotter MD at 21:26 EST , CC: Dr. Tye Viramontes MD; Dr. Hortensia Wells DO Pharmacist Technician: Signed Normal [facility] Emergency Department Summary on 09-12-2021 Emergency Department Summary [facility] Medical Records Department [address] [place] [address] Emergency Department Summary 09/12/21 MR#: [id number] Acct: [id number] Name: DEE HOLLOWAY Rep #: [id number] : 1975 45 From: Tye Viramontes MD PCP: Dr. Hortensia Wells DO Status:REG ER Location: ED HPI History of Present Illness Chief Complaint: Upper Extremity Injury Narrative Narrative: Patient presents with pain and swelling of his left elbow that began today. He just noticed it. He states he went out to have dinner with his friends and was wearing a coat. He did have his elbows on the table. He denies any fall or anything, but noticed a large amount of swelling around his left elbow. He denies any fevers or chills. He did not fall onto the area with a major trauma. He is right-hand dominant. PFSH PFSH Home Medications ibuprofen 600 mg PO Q8H PRN PRN #20 tab 09/12/21 [Rx Last Taken Unknown] Allergy/AdvReac Type Severity Reaction Status Date / Time No Known Allergies Allergy Verified 09/12/21 20:44 Social History Smoking Status: Never smoker substance use type: does not use ROS ROS ED ROS Narrative Constitutional: No fever, no chills. HEENT: No sore throat. No neck pain. No loss of vision. No rhinorrhea. Cardiovascular: No chest pain. No palpitations. No pedal edema. Respiratory: No cough, no shortness of breath. Abdominal: No abdominal pain. No nausea. No vomiting. Genitourinary: No dysuria. No hematuria. Musculoskeletal: No myalgias. Left elbow pain, and swelling. He states that starting to feel stiff. Neurologic: No headaches. No dizziness. No lightheadedness. Skin: No rash. No change in color. Psychiatric: No depression. No anxiety. EXAM Physical Exam Narrative Exam Narrative: Afebrile. Vital signs noted. HEENT: Normocephalic. Atraumatic. PERRL, EOMI. Neck soft and supple. No point tenderness or step off. Cardiovascular: Regular rate and rhythm. No murmurs, rubs, or gallops appreciated. Respiratory: No tachypnea. Lungs clear to auscultation bilaterally. Gastrointestinal: Abdomen soft, nontender, with normoactive bowel sounds. No rebound or guarding. Neurological: Awake. Alert. Nonfocal, nonlateralizing. Skin: No rash. Normal color. No pallor. Musculoskeletal: No pedal edema. Positive swelling left olecranon bursa, large amount of swelling without erythema. Able to flex and extend forearm. Pronation and supination intact. Palpable radial pulse. Const Vital Signs: 09/12/21 20:42 Temperature 97.2 F L Temperature Source Temporal Pulse Rate 108 H Respiratory Rate 16 Blood Pressure 117/90 H Blood Pressure Mean 99 Pulse Ox 98 Oxygen Delivery Method Room Air MDM MDM MDM Narrative Medical decision making narrative: I do feel that this may be olecranon bursitis from repeated microtrauma. He denies being on blood thinners so I do not think that is a spontaneous hematoma. X- rays were obtained of the left elbow. I will discuss the patient with Dr. Juan on-call for orthopedics. X-ray is negative for fracture. There is soft tissue swelling about the olecranon process. Dr. Juan suggested an Juan wrap, and ibuprofen 600 mg 3 times a day. He will follow up with him in the office for possible drainage of the olecranon bursitis. Return instructions were reviewed. Disposition is discharged home in stable condition. Discharge Plan Triage Chief Complaint: Upper Extremity Injury ED Provider: Tye Viramontes Dx/Rx/DC Orders Clinical Impression: Olecranon bursitis Instructions: ED Bursitis Elbow Olecranon Prescriptions: New ibuprofen 600 mg tablet 600 mg PO Q8H PRN PRN (Reason: pain) Qty: 20 RF: 0 Primary Care Provider: Hortensia Wells Referrals: Hortensia Wells DO [Primary Care Provider] - Wilfredo Juan MD [STAFF PHYSICIAN] - 2 Days Disposition Disposition: Home, Self Care What to do if you have Problems For any increased pain, shortness of breath, bleeding, nausea or vomiting, chest pain, or any unexpected problems, contact your Primary Care Provider. Call [facility] ([phone]) or report to the closest Emergency Room. Call 911 if necessary. 09/12/212158 Cosigner Signature (if applicable): CC: Dr. Hortensia Wells DO Signed Normal [facility] Emergency Department Summary on 12-29-2020 Emergency Department Summary [facility] Medical Records Department [address] [place] [address] Emergency Department Summary 12/29/20 MR#: [id number] Acct: [id number] Name: DEE HOLLOWAY Rep #: [id number] : 1975 45 From: Grant Miller DO PCP: Dr. Hortensia Wells DO Status:DEP ER Location: ED HPI History of Present Illness Chief Complaint: Other, Pain/Inj Informant: patient Narrative Narrative: 45-year-old male states that about a week ago he was playing kickball and he dove headfirst towards the base. He states that he has sore bilateral shoulders. He also has had chest discomfort/pain. He was letting it heal up and was taking it easy this weekend. When he went to lay down in bed tonight he felt a pop in the left lower anterior chest he became concerned and came to emergency. PFSH PFSH no medical history Home Medications hydrocodone-acetam inophen 1 tab PO Q6H PRN PRN 3 Days #12 tablet 12/29/20 [Rx Last Taken Unknown] naproxen 500 mg PO BID #14 tab 12/29/20 [Rx Last Taken Unknown] Allergy/AdvReac Type Severity Reaction Status Date / Time No Known Allergies Allergy Verified 12/28/20 23:11 Social History (Updated 12/29/20 @ 00:[address] Grant Miller DO) Smoking Status: Never smoker substance use type: does not use ROS ROS ED Constitutional Constitutional ED: Denies chills or weight loss Eyes Eyes: Denies change in vision or diplopia ENT ENT ED: Denies ear pain, rhinorrhea or sore throat Cardiovascular Cardiovascular: Reports chest pain; Denies orthopnea, palpitations or racing heartbeat Respiratory/Chest Respiratory/Chest: Denies cough, dyspnea or orthopnea Gastrointestinal Gastrointestinal: Denies abdominal pain, diarrhea, nausea or vomiting Genitourinary Genitourinary ED: Denies dysuria, hematuria or urinary frequency Musculoskeletal Musculoskeletal: Reports other Details: Bilateral shoulder pain ; Denies arthralgias or myalgias Integumentary Denies abscess or rash Neurologic Neurologic: Denies headache(s) or weakness Psychiatric Psychiatric: Denies anxiety, depression, suicidal ideation or suicidal thoughts Endocrine Endocrinology: Denies polydipsia, polyphagia or polyuria Allergic/Immunolog ic Allergic/Immunolog ic ED: Denies mouth swelling, tongue swelling or urticaria EXAM Physical Exam Const Vital Signs: 12/28/20 23:08 12/28/20 23:58 Temperature 97.9 F Temperature Source Temporal Pulse Rate 114 H Respiratory Rate 18 Respiratory Effort Normal Respiratory Pattern Normal Blood Pressure 120/94 H Blood Pressure Mean 102 Pulse Ox 97 Oxygen Delivery Method Room Air Positive well nourished and well developed General Appearance ED: well developed HEENT Reports normocephalic, head/scalp atraumatic and moist mucous membranes Eyes PERRL and EOMs intact bilaterally Neck no lymphadenopathy, supple and no JVD Chest Wall Chest Narrative: Patient has tenderness to palpation along the left lower anterior costochondral border around rib 9 and 10. There is no significant deformity. Resp normal respiratory effort and clear to auscultation bilaterally Cardio regular rate, regular rhythm and no murmurs GI normal to inspection, nondistended, normoactive bowel sounds and non-tender Palpation: soft Back/Spine no CVA tenderness and normal ROM Extremity Extremity Narrative: Patient has painful range of motion of the bilateral shoulders but full motion. Negative empty beer can test. Negative apprehension test. General Extremety ED: Negative for edema General Extremity: Negative for edema Neuro oriented x3 and CN's II-XII intact bilaterally Sensorium / Orientation: alert Motor Exam: strength 5/5 throughout Psych mental status grossly normal Mood Affect: Negative for depressed or tearful Skin no rashes or lesions noted and no wounds MDM MDM MDM Narrative Medical decision making narrative: My interpretation of the rib series is no acute fracture. I suspect the patient had a costochondral separation. Patient received a dose of Toradol. I will w rite him pain medication. Follow-up with orthopedics if not improving Radiography Diagnostic Testing: Radiology Impression Ribs w/Chest X-Ray 12/28/20 23:39 IMPRESSION: Negative chest and left ribs series. at 0005 Reported and signed by: Devin Trotter MD Electronically Signed: Devin Trotter MD at 0:04 EDT Tel , Service support , Discharge Plan Triage Chief Complaint: Other, Pain/Inj ED Provider: Grant Miller Dx/Rx/DC Orders Clinical Impression: Costochondral separation Instructions: ED Contusion, Rib Prescriptions: New hydrocodone-acetam inophen [hydrocodone (more content not included)... Normal [facility] Ribs Uni Min 3V w/PA Cheston 12-29-2020 Ribs Uni Min 3V w/PA Chest [facility] Imaging Services [address] [place] [address] Ribs Uni Min 3V w/PA Chest MR#: [id number] Acct: [id number] Name: DEE HOLLOWAY Rep #: [id number] : 1975 M 45 From: Devin Trotter MD PCP: Status: REG ER Study: Ribs Uni Min 3V w/PA Chest Date of Exam: 12/28 Exam# [id number] Ordering Dr: Grant Miller DO EXAM: XR LEFT RIBS AND AP CHEST, 3 OR MORE VIEWS : 1975 CLINICAL INDICATION: left sided rib pain after a kick ball game. pt states ribs hurt while lying down. TECHNIQUE: Frontal and oblique views of the left ribs and frontal view of the chest. This report was created using [employer] report generation technology. COMPARISON: None. FINDINGS: LUNGS AND PLEURAL SPACES: Unremarkable. No consolidation or edema. No pneumothorax. No effusion. HEART: Unremarkable. Cardiac silhouette not enlarged. MEDIASTINUM: Central airways and mediastinal contour are unremarkable. BONES/JOINTS: Unremarkable. No evidence of displaced rib fractures. RAD/Ribs Uni Min 3V w/PA Chest IMPRESSION: Negative chest and left ribs series. at 0005 Reported and signed by: Devin Trotter MD Electronically Signed: Devin Trotter MD at 0:04 EDT Tel , Service support , CC: Dr. Grant Miller DO Pharmacist Technician: Signed Normal [facility] Vital Signs Date Time Vital Sign Value Performing Clinician Faci lity 11-20-2021 11:39-0400 Diastolic Blood Pressure NBP [address] AMOL MAYORGA MD [facility] 11-20-2021 11:39-0400 Heart rate 87 /min DR AMOL MAYORGA MD [facility] 11-20-2021 11:39-0400 Respiratory rate 16 /min DR AMOL MAYORGA MD [facility] 11-20-2021 11:39-0400 Systolic Blood Pressure NBP [address] AMOL MAYORGA MD [facility] 11-20-2021 11:28-0400 Diastolic Blood Pressure NBP [address] AMOL MAYORGA MD [facility] 11-20-2021 11:28-0400 Heart rate 89 /min DR AMOL MAYORGA MD [facility] 11-20-2021 11:28-0400 Respiratory rate 14 /min DR MAOL MAYORGA MD [facility] 11-20-2021 11:28-0400 Systolic Blood Pressure NBP [address] AMOL MAYORGA MD [facility] 11-20-2021 11:22-0400 Diastolic Blood Pressure NBP [address] AMOL MAYORGA MD [facility] 11-20-2021 11:22-0400 Heart rate 88 /min DR AMOL MAYORGA MD [facility] 11-20-2021 11:22-0400 Respiratory rate 16 /min DR AMOL MAYORGA MD [facility] 11-20-2021 11:22-0400 Systolic Blood Pressure NBP [address] AMOL MAYORGA MD [facility] 11-20-2021 11:10-0400 Body temperature 98.06 [degF] DR AMOL MAYORGA MD [facility] 11-20-2021 09:52-0400 Body temperature 97.7 [degF] DR AMOL MAYORGA MD [facility] 11-20-2021 09:52-0400 Heart rate 75 /min DR AMOL MAYORGA MD [facility] 11-20-2021 09:48-0400 Body height 172.[address] AMOL MAYORGA MD [facility] 11-20-2021 09:48-0400 Body weight 81.[address] AMOL MAYORGA MD [facility] 11-20-2021 09:48-0400 Body weight 27.39 kg/m2 DR AMOL MAYORGA MD [facility] Encounters Encounter Date Encounter Type Care Provider Facility Start: 03-04-2025 End: 03-04-[address] HORTENSIA WELLS DO Facility:[facility] [place] Start: 03-04-2025 End: 03-04-[address] AMOL MAYORGA MD [facility] Start: 01-17-2025 End: 01-17-[address] HORTENSIA WELLS DO Facility:[facility] Start: 01-17-2025 Encounter for genera l adult medical examination without abnormal findings DR HORTENSIA WELLS DO [facility] Start: 01-17-2025 End: 01-17-[address] HORTENSIA WELLS DO [facility] Start: 01-17-2025 End: 01-17-2025 Well adult monitoring check done DR HORTENSIA WELLS DO [facility] Start: 01-07-2024 End: 01-07-[address] HORTENSIA WELLS DO Facility: Start: 01-07-2024 End: 01-07-[address] HORTENSIA WELLS DO [facility] Start: 11-20-2021 End: 11-20-[address] AMOL MAYORGA MD [facility] Start: 09-18-2021 End: 09-18-[address] HORTENSIA WELLS DO [facility] Start: 03-26-2020 End: 03-26-2020 Patient encounter procedure External Provider [facility] Start: 03-26-2020 Results Only External Provider Exter nal-Non[facility]F Procedures Date Procedure Procedure Detail Performing Clinician Start: 03-26-2020 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 Provider Start: 08-01-1992 Nasal (qualifier value) DR HORTENSIA WELLS DO Vaccine refused by patient COVID-19 vaccination declined( Confirmed ) DR HORTENSIA WELLS DO Plan of Treatment Date Care Activity Detail Author Start: 04-01-2020 Influenza vaccination INFLUENZA (#1) [facility] Start: 2018 DIABETES SCREEN DIABETES SCREEN [facility] Start: 2008 LIPID SCREEN LIPID SCREEN [facility] Start: 1992 Urine microalbumin profile DTAP,TDAP ,TD (1 - Tdap) [facility] Start: 11-08-1991 HEPATITIS C SCREENING HEPATITIS C SC REENING [facility] Start: 11-08-1991 HIV SCREENING HIV SCREENING [facility] Immunizations Immunization Date Immunization Notes Care Provider Fa cility 09-15-2021 tetanus toxoid, redu yosi diphtheria toxoid, and acellular pertussis vaccine, adsorbed; Translations: [Boostrix (Tdap)] DR HORTENSIA WELLS DO [facility] Payers Date Payer Category Payer Private Health Insurance [id number] 2025 Unknown [id number] 2024 Unknown [id number] 2018 Unknown KATHERINE SALCEDO PPO [id number] 2018-Present PPO [id number] 1973 Unknown [id number] 1973 Unknown [id number] 1973 Unknown [id number] Social History Date Type Detail Facility Tobacco smoking stat [facility] Unknown if ever smoked [facility] Sex Assigned At Not on file [facility] Exposure to SARS-CoV -2 (event) Not sure [facility] Start: 03-03-2020 Never smoked t obacco (finding) [facility] Sex Assigned At Male [facility] Sexual Orientation [facility] Start: 01-24-2019 Sex Male (finding) [facility] Functional Status Date Assessment Result Facility 11-20-2021 Functional Status [facility] 11-20-2021 Functional Status [facility] Mental Status Date Assessment Result Facility 11-20-2021 Mental Status [facility] 11-20-2021 Mental Status [facility] Clinical Notes 11-20-2021 to 03-04-2025 Note Date & Type Note Facility 03-04-2025 Evaluation + Plan note Extrac anuj from: Title:Clinical Document Author:AMOL MAYORGA Date:03/04/25 [facility] ADMISSION HISTORY AN D PHYSICIAL CHIEF COMPLAINT: HISTORY OF PRESENT ILLNESS: REVIEW OF SYSTEMS: ACTIVE PROBLEMS: (3) COVID-19 vaccination declined ([id number]) GERD (gastroesophageal reflux disease) ([id number]) Tooth caries ([id number]) MEDICATIONS: Active Inpt Meds: None Active PRN Meds: None One Time Meds: None Active IV Meds: Lactated Ringers Infusion 1,000 mL (LR 1,000 mL) Start: 03/04/25 9:28:00 EDT, Rate: 50 mL/hr, 03/04/25 9:28:00 EDT ALLERGIES: (1) NKA FAMILY HISTORY: SOCIAL HISTORY: PHYSICAL EXAM: VITALS: XgxusxGwwoIGQebrwJQScB2YFX0BzpjWz(kg) 03/04 09:3436.3--[id number] 85.5 24 Hr Tmax: 36.3 at 03/04 09:34 36 Hr Tmax: 36.3 at 03/04 09:34 Vital Signs are the last 5 in the past 48 hours. Weights display the last 5 within 7 days. Initial Wt: 03/04 85.5 kg 188 lb Current Wt: 03/04 85.5 kg 188 lb GENERAL: HEENT: CARDIOVASCULAR: RESPIRATORY: ABDOMEN: EXREMETIES: NEUROLOGICAL: PSYCHIATRIC: LABS: No 36hr Lab Data DIAGNOSTICS: IMPRESSION: PLAN: History and Physical Update I have examined the patient; reviewed the H&P and there are no changes to the H&P unless noted below. Future Appointments Appointment Date:07/09/2025 09:00:00 AM Scheduled Provider:HORTENSIA WELLS DO Location:[facility] Appointment Type:[facility] 08-04-2025 Hospital Discharge instructions Patient Education 03/04/2025 10:34:05 Colonoscopy, Adult, Care After Colonoscopy, Adult, Care After This sheet gives you information about how to care for yourself after your procedure. Your health care provider may also give you more specific instructions. If you have problems or questions, contact your health care provider. What can I expect after the procedure? After the procedure, it is common to have: A small amount of blood in your stool for 24 hours after the procedure. Some gas. Mild abdominal cramping or bloating. Follow these instructions at home: General instructions For the first 24 hours after the procedure: ?Do not drive or use machinery. ?Do not sign important documents. ?Do not drink alcohol. ?Do your regular daily activities at a slower pace than normal. ?Eat soft, vppt-of-vpnsxx foods. Take hbja-lat-ibqipzm or prescription medicines only as told by your health care provider. Relieving cramping and bloating Try walking around when you have cramps or feel bloated. Apply heat to your abdomen as told by your health care provider. Use a heat source that your healthcare provider recommends, such as a moist heat pack or a heating pad. ?Place a towel between your skin and the heat source. ?Leave the heat on for 20 30 minutes. ?Remove the heat if your skin turns bright red. This is especially important if you are unable to feel pain, heat, or cold. You may have a greater risk of getting burned. Eating and drinking Drink enough fluid to keep your urine pale yellow. Resume your normal diet as instructed by your health care provider. Avoid heavy or fried foods thatare hard to digest. Avoid drinking alcohol for as long as instructed by your health care provider. Contact a health care provider if: You have blood in your stool 2 3 days after the procedure. Get help right away if: You have more than a small spotting of blood in your stool. You pass large blood clots in your stool. Your abdomen is swollen. You have nausea or vomiting. You have a fever. You have increasing abdominal pain that is not relieved with medicine. Summary After the procedure, it is common to have a small amount of blood in your stool. You may also have mild abdominal cramping and bloating. For the first 24 hours after the procedure, do not drive or use machinery, sign important documents, or drink alcohol. Contact your health care provider if you have a lot of blood in your stool, nausea or vomiting, a fever, or increased abdominal pain. This information is not intended to replace advice given to you by your health care provider. Make sure you discuss any questions you have with your health care provider. Document Released: 03/01/2005 Document Revised: 05/10/2018 Document Reviewed: 09/28/2016 [employer] Patient Education 2020 [employer] 03/04/2025 10:34:02 Monitored Anesthesia Care, Care After Monitored Anesthesia Care, Care After These instructions provide you with information about caring for yourself after your procedure. Your health care provider may also give you more specific instructions. Your treatment has been plannedaccording to current medical practices, but problems sometimes occur. Call your health care provider if you have any problems or questions after your procedure. What can I expect after the procedure? After your procedure, you may: Feel sleepy for several hours. Feel clumsy and have poor balance for several hours. Feel forgetful about what happened after the procedure. Have poor judgment for several hours. Feel nauseous or vomit. Have a sore throat if you had a breathing tube during the procedure. Follow these instructions at home: For at least 24 hours after the procedure: Have a responsible adult stay with you. It is important to have someone help care for you until youare awake and alert. Rest as needed. Do not: ?Participate in activities in which you could fall or become injured. ?Drive. ?Use heavy machinery. ?Drink alcohol. ?Take sleeping pills or medicines that cause drowsiness. ?Make important decisions or sign legal documents. ?Take care of children on your own. Eating and drinking Follow the diet that is recommended by your health care provider. If you vomit, drink water, juice, or soup when you can drink without vomiting. Make sure you have little or no nausea before eating solid foods. General instructions Take pehw-mav-vrlneob and prescription medicines only as told by your health care provider. If you have sleep apnea, surgery and certain medicines can increase your risk for breathing problems. Follow instructions from your health care provider about wearing your sleep device: ?Anytime you are sleeping, including during daytime naps. ?While taking prescription pain medicines, sleeping medicines, or medicines that make you drowsy. If you smoke, do not smoke without supervision. Keep all follow-up visits as told by your health care provider. This is important. Contact a health care provider if: You keep feeling nauseous or you keep vomiting. You feel light-headed. You develop a rash. You have a fever. Get help right away if: You have trouble breathing. Summary For several hours after your procedure, you may feel sleepy and have poor judgment. Have a responsible adult stay with you for at least 24 hours or until you are awake and alert. This information is not intended to replace advice given to you by your health care provider. Make sure you discuss any questions you have with your health care provider. Document Released: 2016 Document Revised: 10/16/2018 Document Reviewed: 2016 [employer] Patient Education 2020 [employer] Follow Up Care 02/22/2025 09:30:28 With:AMOL MAYORGA Address: [address] [address] [phone] Business (1) When: Unknown [facility] 08-04-2025 Note Date of Service 03/04/2025 Procedure Name EGD with biopsy Consent Taken before procedure Indication Epigastric pain with chronic reflux Location [facility] Pre-Procedure Exam Chronic GERD with epigastric pain Procedural Sedation Anesthesia provided a MAC Technique The patient was brought to the Endo suite and placed left shoulder down. The endoscope was passed regularization of the esophagus. Z-line was intact there was some small breaks in the mucosa the Z-line was 34 cm from the incisors. The stomach was easily insufflated there was some mild erythema no active peptic ulcer disease the duodenum was unremarkable. Retroflexion performed showed no evidence of a hiatal hernia from that angle. Biopsies were taken in the antral region of the stomach for testing for H. pylori. Back up at the distal esophagus there was a small fixed hiatal hernia perhaps 1 cm. The endoscope was withdrawn and the patient tolerated the procedure well. Post-Procedure Exam EGD with biopsy Findings Small hiatal hernia Complications None apparent Total Time Approximately 20 minutes Assessment/Plan Orders: Lactated Ringers Infusion 1,000 mL(LR 1,000 mL), 1000 mL, Intravenous Bedrest, 03/04/25 10:33:00 EDT, Strict, continuous, Constant order, Lying on side until alert or asordered Bedrest, 03/04/25 10:33:00 EDT, Strict, continuous, Constant order, Lying on side until alert or asordered Call Parameters, 03/04/25 10:33:00 EDT, Notify for vomiting, severe pain, signs of bleeding, severeabdominal pain, distention or rigidity, Constant order Communication Order (scheduled), 03/04/25 9:28:00 EDT, Once, 03/04/25 9:28:00 EDT, Pathology TissueRequest Communication Order (scheduled), 03/04/25 9:28:00 EDT, Once, 03/04/25 9:28:00 EDT, Urine Test or waiver for women of child bearing age Communication Order (scheduled), 03/04/25 9:28:00 EDT, Once, 03/04/25 9:28:00 EDT, Fasting Blood Sugar priot to procedure of patient is diabetic Diet Order, 03/04/25 10:33:00 EDT, Start Meal: Next meal, Clear Liquid Diet, Post exam or after gagreflex returns if EGD, Constant Order, : N/A, : N/A Discharge, 03/04/25 9:28:00 EDT, Discharged to: Home, when able to ambulate and after being seen byphysician Discharge Activity, NO activity restrictions, 03/04/25 10:33:00 EDT Discharge Diet, Follow the post-operative/post-procedure diet instructions provided by your physician's office., 03/04/25 10:33:00 EDT Discharge Wound Care, Follow the post-operative/post-procedure wound care instructions provided by your physician's office., 03/04/25 10:33:00 EDT Post Procedure Assessment, 03/04/25 10:33:00 EDT, Stop Date 03/04/25 10:33:00 EDT, [facility] in [facility] Recovery Room until Trinidad Score of 12 or Preprocedure Sign Consent, 03/04/25 9:28:00 EDT, Once, For EGD Vital Signs, 03/04/25 10:33:00 EDT, q15min, 1 hour(s), 03/04/25 11:30:00 EDT Vital Signs, 03/04/25 10:33:00 EDT, q30min, 1 hour(s), 03/04/25 11:30:00 EDT Vital Signs PRN, 03/04/25 10:33:00 EDT, PRN order Follow Up/Recommendation Follow-up the testing for H. pylori continue the patient on his PPI daily Digitally Signed by AMOL MAYORGA MD on 03/04/2025 10:35 AM [facility]08-04-2025 Note Discharge Instructions Thank you for allowing [facility] to assist you with your healthcare needs. The following is importantdischarge information regarding your hospital visit. Your Care Team HORTENSIA WELLS DO What to do next Scheduled Follow-Up Appointments Appointment Type When With Where Contact Information StatusPC 07/09/2025 09:00 AM ALFONSO HORTENSIA WELLS [facility] [place] [address] [place] [address] Confirmed Follow Up Appointments Follow Up with AMOL MAYORGA Where:[address] [place] [address]- [phone] Business (1) The Following Activity and Diet Have Been Ordered for You Discharge Activity - Ordered -- NO activity restrictions, 03/04/25 10:33:00 EDT Discharge Diet - Ordered -- Follow the post-operative/post-procedure diet instructions provided by your physician's office.,03/04/25 10:33:00 EDT Allergies NKA Medications Please ask your primary doctor or pharmacist before taking any other medication not listed, including over the counter drugs, herbal medications, vitamins and or supplements as they may interact withyour home medications. What How Much When Instructions Last Dose Unchanged omeprazole (omeprazole 20 mg oral delayed release capsule) 1 cap by mouth Once a day Please take this list to your next doctor s visit. Bring all medications you take, including over the counter medications, herbals and other supplements with you to your doctor s visit. Patients and families are reminded to discard old lists and to update any records with all medication providers or retail pharmacies. Education Materials Colonoscopy, Adult, Care After This sheet gives you information about how to care for yourself after your procedure. Your health care provider may also give you more specific instructions. If you have problems or questions, contact your health care provider. What can I expect after the procedure? After the procedure, it is common to have: A small amount of blood in your stool for 24 hours after the procedure. Some gas. Mild abdominal cramping or bloating. Follow these instructions at home: General instructions For the first 24 hours after the procedure: ? Do not drive or use machinery. ? Do not sign important documents. ? Do not drink alcohol. ? Do your regular daily activities at a slower pace than normal. ? Eat soft, ebso-nq-bmavjn foods. Take gkie-aup-escvqjc or prescription medicines only as told by your health care provider. Relieving cramping and bloating Try walking around when you have cramps or feel bloated. Apply heat to your abdomen as told by your health care provider. Use a heat source that your healthcare provider recommends, such as a moist heat pack or a heating pad. ? Place a towel between your skin and the heat source. ? Leave the heat on for 20 30 minutes. ? Remove the heat if your skin turns bright red. This is especially important if you are unable to feel pain, heat, or cold. You may have a greater risk of getting burned. Eating and drinking Drink enough fluid to keep your urine pale yellow. Resume your normal diet as instructed by your health care provider. Avoid heavy or fried foods thatare hard to digest. Avoid drinking alcohol for as long as instructed by your health care provider. Contact a health care provider if: You have blood in your stool 2 3 days after the procedure. Get help right away if: You have more than a small spotting of blood in your stool. You pass large blood clots in your stool. Your abdomen is swollen. You have nausea or vomiting. You have a fever. You have increasing abdominal pain that is not relieved with medicine. Summary After the procedure, it is common to have a small amount of blood in your stool. You may also have mild abdominal cramping and bloating. For the first 24 hours after the procedure, do not drive or use machinery, sign important documents, or drink alcohol. Contact your health care provider if you have a lot of blood in your stool, nausea or vomiting, a fever, or increased abdominal pain. This information is not intended to replace advice given to you by your health care provider. Make sure you discuss any questions you have with your health care provider. Document Released: 03/01/2005 Document Revised: 05/10/2018 Document Reviewed: 09/28/2016 [employer] Patient Education 2020 [employer] Monitored Anesthesia Care, Care After These instructions provide you with information about caring for yourself after your procedure. Your health care provider may also give you more specific instructions. Your treatment has been plannedaccording to current medical practices, but problems sometimes occur. Call your health care provider if you have any problems or questions after your procedure. What can I expect after the procedure? After your procedure, you may: Feel sleepy for several hours. Feel clumsy and have poor balance for several hours. Feel forgetful about what happened after the procedure. Have poor judgment for several hours. Feel nauseous or vomit. Have a sore throat if you had a breathing tube during the procedure. Follow these instructions at home: For at least 24 hours after the procedure: Have a responsible adult stay with you. It is important to have someone help care for you until youare awake and alert. Rest as needed. Do not: ? Participate in activities in which you could fall or become injured. ? Drive. ? Use heavy machinery. ? Drink alcohol. ? Take sleeping pills or medicines that cause drowsiness. ? Make important decisions or sign legal documents. ? Take care of children on your own. Eating and drinking Follow the diet that is recommended by your health care provider. If you vomit, drink water, juice, or soup when you can drink without vomiting. Make sure you have little or no nausea before eating solid foods. General instructions Take wxzt-coy-clrmcub and prescription medicines only as told by your health care provider. If you have sleep apnea, surgery and certain medicines can increase your risk for breathing problems. Follow instructions from your health care provider about wearing your sleep device: ? Anytime you are sleeping, including during daytime naps. ? While taking prescription pain medicines, sleeping medicines, or medicines that make you drowsy. If you smoke, do not smoke without supervision. Keep all follow-up visits as told by your health care provider. This is important. Contact a health care provider if: You keep feeling nauseous or you keep vomiting. You feel light-headed. You develop a rash. You have a fever. Get help right away if: You have trouble breathing. Summary For several hours after your procedure, you may feel sleepy and have poor judgment. Have a responsible adult stay with you for at least 24 hours or until you are awake and alert. This information is not intended to replace advice given to you by your health care provider. Make sure you discuss any questions you have with your health care provider. Document Released: 2016 Document Revised: 10/16/2018 Document Reviewed: 2016 [employer] Patient Education 2020 [employer] Additional Information VACCINATE! IT SAVES LIVES! Members of the community who have not yet received the COVID-19 vaccine and would like to receive it can visit one of [facility] vaccine clinics. There are many vaccine clinic locations within the [facility]. For locations and available times, please visit https://gettheshot.coronavirus.[place].gov/. It is important to note that some COVID mobile vaccine clinics are held outdoors and may be canceled in rainy or stormy conditions. To learn more about pediatric vaccinations (ages 5-11), we invite you to visit the [facility] webpage. https://www.[facility].org/pages/0540-Rggjr-Atiozjvbpwp-Hckbqxutdc-Swyyc-Whw stions.htmlTo learn more about the COVID-19 vaccine, we invite you to visit the CDC website for a list of frequently asked questions.https://www.cdc.gov/coronavirus/2019-ncov/vaccines/faq.html [facility] Patient Portal Access Instructions: Stay connected with your healthcare team and access your personal medical information anytime with the [facility] Patient Portal. Please follow the directions below to create your [facility] account: 1.Access the email account you provided upon registration to the hospital/physician office.2.Look for an invitation email from [facility].3.Open the email and access the invitation link: AcceptInvitation to [facility].4.Fill in the required worthy to create your account. To access your account, visit [employer]. Click the blue button labeled Access Patient Portal and then log in with the username and password that you created in the steps above. You will be able to view your test results, lab results, a summary of your visits, upcoming appointments and more. There is also a convenient messaging option where you can send secure messages to your p rovider. In addition, you will have the ability to download any documents or summaries to your computer and/or send the information securely to a physician. Remember that your healthcare information is confidential, so carefully consider who you will allowto register on the [facility] Patient Portal for access to your information. You can also access the [facility] Patient Portal on the [facility] yovanny. Simply click on Patient Portal and then log into your account. If you would like to receive a full copy of your medical records, please contact the [facility] Medical Records Department by calling [phone], Tuesday through Tuesday between 8 a.m. and 4:30 p.m. HOW TO SAFELY DISPOSE OF PRESCRIPTION MEDICATIONS Please use one of the following methods to safely dispose of your unused medications. 1.Use a drug disposal kit: the drug disposal pouch allows you to safely discard your old and unuseddrugs. Ask your nurse to give you one when you are discharged.2.Visit a local take-back location: Many local pharmacies and police departments have programs that collect old and unwanted prescriptiondrugs. Call your local pharmacy or go to http://[email or web address]/[email or web address] to find one close to you.3.Make use of household items: Use cat litter or old coffee grounds to dispose medications if other options arenot available. Mix your drugs with these household products, seal them in an airtight container andthrow it into the garbage. Call [facility]: [phone] to be sure your drugs can be disposed of in this way. Some medicines may require a different approach.4.Never flush your medications down the toilet. IF YOU HAVE BEEN PRESCRIBED AN OPIOID FOR PAIN If you have been prescribed an opioid (such as hydrocodone, oxycodone or morphine), it is critical to understand the possible side effects and risks of opioid pain medications. Even when taken as directed, opioids can have several side effects including: Tolerance, meaning you might need to take more of a medication for the same pain relief. Nausea, vomiting and/or constipation. Sleepiness, dizziness, dry mouth, confusion, depression or itching. Physical dependence, meaning you have withdrawal symptoms when a medication is stopped, can develop within a few days. KNOW YOUR RESPONSIBILITIES It is important to know exactly how much and how often to take the opioid pain medications you are prescribed. Never take opioids in higher amounts or more often than prescribed. Do not combine opioids with alcohol or other drugs that cause drowsiness, such as benzodiazepines, also known as benzos, including diazepam and alprazolam, muscle relaxants or sleep aids. Never sell or share prescription opioids. This is illegal. Store opioids in a secure place and out of reach of others (including children, family, friends and visitors). The last page of this document has been signed and retained as a CHART COPY. Signatures Patient Education Materials Colonoscopy, Adult, Care After Monitored Anesthesia Care, Care After Medication Leaflets My discharge plan and instructions have been reviewed and explained to me and IJEWEL JOHN Eunderstand my current condition and have read and understand these discharge instructions. I have received a written copy of the plan/instructions. If I have questions, I am aware that I should contact my doctor. Patient/Cougar Hunter Signature: Date/Time: Relationship to Patient: Witness Name/Signature: Date/Time: [facility]08-04-2025 Anesthesiology Consult note Patient: DEE HOLLOWAY Age: 49 years Sex: Male : 1975 Associated Diagnoses: None Author: DAVID MONTES Assessment Postanesthesia assessment Vitals: Vital signs from flowsheet : Vital Signs 03/04/2025 10:20 EDT Heart Rate Monitored 72 bpm bpm Respiratory Rate - Anes 12 br/min br/min Systolic Blood Pressure Non-Invasive 113 mmHg mmHg Diastolic Blood Pressure Non-Invasive 80 mmHg mmHg 03/04/2025 9:34 EDT Temperature Temporal Artery 36.3 DegC Peripheral Pulse Rate 69 bpm Respiratory Rate 14 br/min Systolic Blood Pressure Non-Invasive 109 mmHg Diastolic Blood Pressure Non-Invasive 83 mmHg . Mental status: alert & oriented x 4. Respiratory function: lungs are clear to auscultation. Respiratory support: none. CV function: Normal rate. Cardiovascular support: none. Pain. Nausea status: see nursing documentation of medications. Postoperative hydration status: within normal limits. Digitally Signed by DAVID MONTES on 03/04/2025 10:30 AM [facility]08-04-2025 Note RODANTHE ADMISSION HISTORY AND PHYSICIAL CHIEF COMPLAINT: HISTORY OF PRESENT ILLNESS: REVIEW OF SYSTEMS: ACTIVE PROBLEMS: (3) COVID-19 vaccination declined ([id number]) GERD (gastroesophageal reflux disease) ([id number]) Tooth caries ([id number]) MEDICATIONS: Active Inpt Meds: None Active PRN Meds: None One Time Meds: None Active IV Meds: Lactated Ringers Infusion 1,000 mL (LR 1,000 mL) Start: 03/04/25 9:28:00 EDT, Rate: 50 mL/hr, 03/04/25 9:28:00 EDT ALLERGIES: (1) NKA FAMILY HISTORY: SOCIAL HISTORY: PHYSICAL EXAM: VITALS: [id number]eFi(kg) 03/04 09:3436.3--560023CJ26/04 85.5 24 Hr Tmax: 36.3 at 03/04 09:34 36 Hr Tmax: 36.3 at 03/04 09:34 Vital Signs are the last 5 in the past 48 hours. Weights display the last 5 within 7 days. Initial Wt: 03/04 85.5 kg 188 lb Current Wt: 03/04 85.5 kg 188 lb GENERAL: HEENT: CARDIOVASCULAR: RESPIRATORY: ABDOMEN: EXREMETIES: NEUROLOGICAL: PSYCHIATRIC: LABS: No 36hr Lab Data DIAGNOSTICS: IMPRESSION: PLAN: History and Physical Update I have examined the patient; reviewed the H&P and there are no changes to the H&P unless noted below. Digitally Signed by AMOL MAYORGA MD on 03/04/2025 10:23 AM [facility]08-04-2025 Anesthesiology Consult note Patient: DEE HOLLOWAY Age: 49 years Sex: Male : 1975 Associated Diagnoses: None Author: DAVID MONTES APRN-[employer] Preoperative Information Time of last food or liquid consumption: 03/03/2025 22:00:00 Anesthesia history Patient's history: negative. Family's history: negative. Review of Systems Ear/Nose/Mouth/Throat: Negative except as documented in history of present illness. Respiratory: Negative except as documented in history of present illness. Cardiovascular: Negative except as documented in history of present illness. Gastrointestinal: Negative except as documented in history of present illness. Genitourinary: Negative except as documented in history of present illness. Endocrine: Negative except as documented in history of present illness. Musculoskeletal: Negative except as documented in history of present illness. Integumentary: Negative except as documented in history of present illness. Neurologic: Negative except as documented in history of present illness. Health Status Allergies: Allergic Reactions (Selected) NKA, Allergies (1) ActiveSeverityReaction NKANone Documented Current medications: (Selected) Inpatient Medications Ordered LR 1,000 mL: 50 mL/hr, Intravenous Prescriptions Prescribed omeprazole 20 mg oral delayed release capsule: 20 mg, 1 cap(s), Oral, qDay, 90 cap(s), 0 Refill(s), Medications (1) Active Scheduled: (0) Continuous: (1) Lactated Ringers 1,000 mL 1,000 mL, Intravenous, 50 mL/hr PRN: (0) Problem list: Medical Tooth caries / SNOMED CT 006733384 / Confirmed GERD (gastroesophageal reflux disease) / SNOMED CT 079015889 / Confirmed COVID-19 vaccination declined / SNOMED CT 0711414431 / Confirmed Canceled: Dental caries / SNOMED CT 785212277, Active Problems (3) COVID-19 vaccination declined GERD (gastroesophageal reflux disease) Tooth caries Histories Past Medical History: No active or resolved past medical history items have been selected or recorded. Family History: Cholecystitis Father Comments: 02/06/2020 15:56 Cherelle Junior RN Had cholecystectomy Brother Comments: 02/06/2020 15:56 Cherelle Junior RN Had cholecystectomy Coronary artery disease Father Procedure history: Nasal ([id number]) in 1992 at 19 Years. 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 Coffee, sweet tea / soda occasional. Physical Examination Vital Signs 03/04/2025 9:34 EDT Temperature Temporal Artery 36.3 DegC Peripheral Pulse Rate 69 bpm Respiratory Rate 14 br/min Systolic Blood Pressure Non-Invasive 109 mmHg Diastolic Blood Pressure Non-Invasive 83 mmHg Vital Signs (last 24 hrs) Last Charted Temp Bbdzafrt17.3 DegC (MAR 04 09:34) ORW109 mmHg (MAR 04 09:34) DBP83 mmHg (MAR 04 09:34) Measurements from flowsheet : Measurements 03/04/2025 9:34 EDT Height 174 cm Height in inches 68.5 inch(es) Admission Weight 85.5 kg Weight Lbs 188.1 lb [place] Body Weight 69.56 kg Admission Body Mass Index 28.24 m2 03/04/2025 9:30 EDT Height 174 cm [place] Body Weight 69.56 kg Pain assessment: Pain Assessment 03/04/2025 9:34 EDT Primary Pain Intensity 0 Pain Scale Type 0-10 Pain scale . General: Alert and oriented. Airway: Normal neck range of motion. Mallampati classification: II (soft palate, fauces, uvula visible). Head: Normocephalic. Dentition Evaluation: Intact, Own teeth. Neck: Full range of motion. Respiratory: Lungs are clear to auscultation. Cardiovascular: Normal rate. Heart Sounds: Normal. Gastrointestinal: Soft. Musculoskeletal Normal range of motion. Integumentary: Intact, Warm, Dry. Neurologic: Alert, Oriented. Review / Management Results review: No qualifying data available , Lab results 03/04/2025 9:47 EDT IV Present Present Anesthesia Extension Set Applied Yes 03/04/2025 9:46 EDT Continuous IV Infusions LR Antecubital Left 03/04/2025 22 gauge Peripheral IV Activity: Insert new site Peripheral IV Dressing Condition: Clean, Dry, Intact Peripheral IV Dressing Activity: Applied, Transparent dressing Peripheral IV Line Status/Patency: Continuous infusion Peripheral IV Site Condition: No complications Peripheral IV Equipment: Extension set, PRN Adaptor Peripheral IV Number of Attempts: 1 03/04/2025 9:34 EDT Height 174 cm Height in inches 68.5 inch(es) Admission Weight 85.5 kg Weight Lbs 188.1 lb [place] Body Weight 69.56 kg Admission Body Mass Index 28.24 m2 Temperature Temporal Artery 36.3 DegC Peripheral Pulse Rate 69 bpm Respiratory Rate 14 br/min Systolic Blood Pressure Non-Invasive 109 mmHg Diastolic Blood Pressure Non-Invasive 83 mmHg Primary Pain Intensity 0 Pain Scale Type 0-10 Pain scale Heart Rhythm Regular Respirations Unlabored Respiratory Pattern Regular Breath Sounds Auscultated Anterior and posterior All Lobes Breath Sounds Clear Oxygen Therapy Room air Oxygen Saturation 98 % Skin Description Normal for ethnicity Skin Temperature Warm Skin Integrity Intact Level of Consciousness Alert Strength All Extremities Strong Tone All Extremities Normal Sensation All Extremities Intact Affect/Behavior Appropriate, Calm, Cooperative Orientation Oriented x 4 Positioning Repositions self Activity Status ADL Awake Standard Safety ID band on, Call device within reach, Bed in low position, Wheels locked, Safety level maintained 03/04/2025 9:32 EDT Allergies No Car 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 On Yes Consent Form Signed Yes Patient Dressed In Hospital gown History & Physical On Chart Yes Belongings At Bedside Pants, Shirt, Shoes, Undergarments NPO Status Maintained Patient ID Band on and Verified Yes Implants Verified Yes Pacemaker/AICD Verified Yes Site Verified by Patient/Family Yes Last Fluid Intake 03/03/2025 22:00 Last Food Intake 03/03/2025 22:00 03/04/2025 9:30 EDT Designated Person #1 We May Share PHI RAINE Designated Person #1 Relationship Spouse Designated Person #2 We May Share PHI KIMBERLY Designated Person #2 Relationship Daughter Height 174 cm [place] Body Weight 69.56 kg Status N/A Sensory Deficits None Infectious Disease Symptoms Patient states no symptoms Infectious Disease Recent Exposure No Alcohol and Drug Use No Employee of Institutional Living No Health Care Employee No History of Exposure to TB No History of Positive Chest X-Ray for TB No History of Positive TB Skin Test No Homeless No Known Immunosuppression No Recent Immigrant No Resident of Institutional Living No Bloody Sputum No Fatigue No Fever No Loss of Appetite No Night Sweats No Persistent Cough > 3 Weeks No Weight Loss No Barriers to Learning None evident Teaching Method Explanation Preferred Spoken Language Slovenian Preferred Written Language Slovenian Patient's Current Physicians PRISCILLA Discharge To, Anticipated Home independently Prev Test Positive/Diagnosis w/COVID-19 No Current Quarantine/Isolated any Illness No Any Contact with Sick Animals/Birds No Traveled Anywhere in Last 30 Days No N/A Personal Devices, Patient Valuables None Admission Note-Nursing Procedure/Therapy Intake . Assessment and Plan [place] [employer] Anesthesiologists (ASA) physical status classification: Class II. Anesthetic Preoperative Plan Premedication: intravenous. Anesthetic technique: MAC. Induction: intravenously. Maintenance airway: Mask. Risks discussed: nausea, vomiting, headache, sore throat, dental injury, hypotension, allergic reaction, serious complications. Informed consent: signed by patient. Digitally Signed by DAVID MONTES on 03/04/2025 10:09 AM [facility]04-22-2022 Evaluation + Plan noteExtracted from: Title:Clinical Document Author:AMOL MAYORGA Date:11/20/21 R[facility] ADMISSION HISTORY AN D PHYSICIAL CHIEF COMPLAINT: HISTORY OF PRESENT ILLNESS: REVIEW OF SYSTEMS: ACTIVE PROBLEMS: (3) COVID-19 vaccination declined ([id number]) GERD (gastroesophageal reflux disease) (709014269) Tooth caries (792657348) MEDICATIONS: Active Inpt Meds: None Active PRN Meds: None One Time Meds: None Active IV Meds: Lactated Ringers Infusion 1,000 mL (LR 1,000 mL) Start: 11/20/21 9:38:00 EDT, Rate: 50 mL/hr, 11/20/21 9:38:00 EDT ALLERGIES: (1) NKA FAMILY HISTORY: SOCIAL HISTORY: PHYSICAL EXAM: VITALS: FgeghxFevuZJCycgiAYOmF7MWO0EcbpWp(kg) 11/20 09:5236.5115/[id number]--46/22 81.8 24 Hr Tmax: 36.5 at 11/20 09:52 36 Hr Tmax: 36.5 at 11/20 09:52 Vital Signs are the last 5 in the past 48 hours. Weights display the last 5 within 7 days. Initial Wt: 11/20 81.8 kg 180 lb Current Wt: 11/20 81.8 kg 180 lb GENERAL: HEENT: CARDIOVASCULAR: RESPIRATORY: ABDOMEN: EXREMETIES: NEUROLOGICAL: PSYCHIATRIC: LABS: No 36hr Lab Data DIAGNOSTICS: IMPRESSION: PLAN: History and Physical Update I have examined the patient; reviewed the H&P and there are no changes to the H&P unless noted below. [facility] 04-22-2022 Hospital Discharge instructions Patient Education 11/20/2021 11:27:09 Monitored Anesthesia Care, Care After Monitored Anesthesia Care, Care After These instructions provide you with information about caring for yourself after your procedure. Your health care provider may also give you more specific instructions. Your treatment has been plannedaccording to current medical practices, but problems sometimes occur. Call your health care provider if you have any problems or questions after your procedure. What can I expect after the procedure? After your procedure, you may: Feel sleepy for several hours. Feel clumsy and have poor balance for several hours. Feel forgetful about what happened after the procedure. Have poor judgment for several hours. Feel nauseous or vomit. Have a sore throat if you had a breathing tube during the procedure. Follow these instructions at home: For at least 24 hours after the procedure: Have a responsible adult stay with you. It is important to have someone help care for you until youare awake and alert. Rest as needed. Do not: ?Participate in activities in which you could fall or become injured. ?Drive. ?Use heavy machinery. ?Drink alcohol. ?Take sleeping pills or medicines that cause drowsiness. ?Make important decisions or sign legal documents. ?Take care of children on your own. Eating and drinking Follow the diet that is recommended by your health care provider. If you vomit, drink water, juice, or soup when you can drink without vomiting. Make sure you have little or no nausea before eating solid foods. General instructions Take nzwp-znl-nhfazmm and prescription medicines only as told by your health care provider. If you have sleep apnea, surgery and certain medicines can increase your risk for breathing problems. Follow instructions from your health care provider about wearing your sleep device: ?Anytime you are sleeping, including during daytime naps. ?While taking prescription pain medicines, sleeping medicines, or medicines that make you drowsy. If you smoke, do not smoke without supervision. Keep all follow-up visits as told by your health care provider. This is important. Contact a health care provider if: You keep feeling nauseous or you keep vomiting. You feel light-headed. You develop a rash. You have a fever. Get help right away if: You have trouble breathing. Summary For several hours after your procedure, you may feel sleepy and have poor judgment. Have a responsible adult stay with you for at least 24 hours or until you are awake and alert. This information is not intended to replace advice given to you by your health care provider. Make sure you discuss any questions you have with your health care provider. Document Released: 2016 Document Revised: 10/16/2018 Document Reviewed: 2016 [employer] Patient Education 2020 [email or web address]. 11/20/2021 11:27:02 Colon Polyps Colon Polyps Polyps are tissue growths inside the body. Polyps can grow in many places, including the large intestine (colon). A polyp may be a round bump or a mushroom-shaped growth. You could have one polyp or several. Most colon polyps are noncancerous (benign). However, some colon polyps can become cancerous over time. Finding and removing the polyps early can help prevent this. What are the causes? The exact cause of colon polyps is not known. What increases the risk? You are more likely to develop this condition if you: Have a family history of colon cancer or colon polyps. Are older than 50 or older than 45 if you are . Have inflammatory bowel disease, such as ulcerative colitis or Crohn's disease. Have certain hereditary conditions, such as: ?Familial adenomatous polyposis. ?Guzman syndrome. ?Turcot syndrome. ?Peutz Jeghers syndrome. Are overweight. Smoke cigarettes. Do not get enough exercise. Drink too much alcohol. Eat a diet that is high in fat and red meat and low in fiber. Had childhood cancer that was treated with abdominal radiation. What are the signs or symptoms? Most polyps do not cause symptoms. If you have symptoms, they may include: Blood coming from your rectum when having a bowel movement. Blood in your stool. The stool may look dark red or black. Abdominal pain. A change in bowel habits, such as constipation or diarrhea. How is this diagnosed? This condition is diagnosed with a colonoscopy. This is a procedure in which a lighted, flexible scope is inserted into the anus and then passed into the colon to examine the area. Polyps are sometimes found when a colonoscopy is done as part of routine cancer screening tests. How is this treated? Treatment for this condition involves removing any polyps that are found. Most polyps can be removed during a colonoscopy. Those polyps will then be tested for cancer. Additional treatment may be needed depending on the results of testing. Follow these instructions at home: Lifestyle Maintain a healthy weight, or lose weight if recommended by your health care provider. Exercise every day or as told by your health care provider. Do not use any products that contain nicotine or tobacco, such as cigarettes and e-cigarettes. If you need help quitting, ask your health care provider. If you drink alcohol, limit how much you have: ?0 1 drink a day for women. ? 0 2 drinks a day for men. Be aware of how much alcohol is in your drink. In the [place] one drink equals one 12 oz bottle of beer (355 mL), one 5 oz glass of wine (148 mL), or one 1 oz shot of hard liquor (44 mL). Eating and drinking Eat foods that are high in fiber, such as fruits, vegetables, and whole grains. Eat foods that are high in calcium and vitamin D, such as milk, cheese, yogurt, eggs, liver, fish, and broccoli. Limit foods that are high in fat, such as fried foods and desserts. Limit the amount of red meat and processed meat you eat, such as hot dogs, sausage, gould, and lunch meats. General instructions Keep all follow-up visits as told by your health care provider. This is important. ?This includes having regularly scheduled colonoscopies. ?Talk to your health care provider about when you need a colonoscopy. Contact a health care provider if: You have new or worsening bleeding during a bowel movement. You have new or increased blood in your stool. You have a change in bowel habits. You lose weight for no known reason. Summary Polyps are tissue growths inside the body. Polyps can grow in many places, including the colon. Most colon polyps are noncancerous (benign), but some can become cancerous over time. This condition is diagnosed with a colonoscopy. Treatment for this condition involves removing any polyps that are found. Most polyps can be removed during a colonoscopy. This information is not intended to replace advice given to you by your health care provider. Make sure you discuss any questions you have with your health care provider. Document Released: 04/13/2005 Document Revised: 11/02/2018 Document Reviewed: 11/02/2018 [employer] Patient Education 2020 [email or web address]. 11/20/2021 11:26:48 Colonoscopy, Adult, Care After, Uhcf-sn-Rxyf Colonoscopy, Adult, Care After This sheet gives you information about how to care for yourself after your procedure. Your doctor may also give you more specific instructions. If you have problems or questions, call your doctor. What can I expect after the procedure? After the procedure, it is common to have: A small amount of blood in your poop for 24 hours. Some gas. Mild cramping or bloating in your belly. Follow these instructions at home: General instructions For the first 24 hours after the procedure: ?Do not drive or use machinery. ?Do not sign important documents. ?Do not drink alcohol. ?Do your daily activities more slowly than normal. ?Eat foods that are soft and easy to digest. Take gmvw-cvu-rdhupqw or prescription medicines only as told by your doctor. To help cramping and bloating: Try walking around. Put heat on your belly (abdomen) as told by your doctor. Use a heat source that your doctor recommends, such as a moist heat pack or a heating pad. ?Put a towel between your skin and the heat source. ?Leave the heat on for 20 30 minutes. ?Remove the heat if your skin turns bright red. This is especially important if you cannot feel pain, heat, or cold. You can get burned. Eating and drinking Drink enough fluid to keep your pee (urine) clear or pale yellow. Return to your normal diet as told by your doctor. Avoid heavy or fried foods that are hard to digest. Avoid drinking alcohol for as long as told by your doctor. Contact a doctor if: You have blood in your poop (stool) 2 3 days after the procedure. Get help right away if: You have more than a small amount of blood in your poop. You see large clumps of tissue (blood clots) in your poop. Your belly is swollen. You feel sick to your stomach (nauseous). You throw up (vomit). You have a fever. You have belly pain that gets worse, and medicine does not help your pain. Summary After the procedure, it is common to have a small amount of blood in your poop. You may also have mild cramping and bloating in your belly. For the first 24 hours after the procedure, do not drive or use machinery, do not sign important documents, and do not drink alcohol. Get help right away if you have a lot of blood in your poop, feel sick to your stomach, have a fever, or have more belly pain. This information is not intended to replace advice given to you by your health care provider. Make sure you discuss any questions you have with your health care provider. Document Released: 08/20/2011 Document Revised: 05/18/2018 Document Reviewed: 04/11/2017 [employer] Patient Education 2019 [facility] Up [facility] 11/13/2021 07:12:48 With:AMOL MAYORGA MD Address: [address] [facility] [address] [place] [address]- [phone] When: Unknown Comments:A POLYP WAS TAKEN OUT AND SENT TO THE LAB FOR EVALUATION. YOU WILL BE NOTIFIED OF THE RESULTS IN 7-10 DAYS BY MAIL OR YOU WILL RECEIVE A CALL FROM THE OFFICE WITH THOSE RESULTS. CALL DR MAYORGA WITH ANY QUESTIONS OR CONCERNS. GO TO THE EMERGENCY ROOM WITH ANY URGENT ISSUES. [facility] Evaluation + Plan note No data available for this section [facility] Hospital Discharge instructions No data available for this section [facility] Progress note No data available for this section [facility] Summary Purpose Family History No Family History Records Found No data available for this section No Family History Records Found No data available for this section No data available for this section No Family History Records Found Advance Directives No Advanced Directives Records FoundNo Advanced Directives Records FoundNo Advanced Directives Records Found Additional Source Comments Source Comments (unrecognize d section and content) In the event this informatio n is protected by the Federal Confidentiality of Alcohol and Drug Abuse Patient Records regulations: The Federal rules restrict any use of the information to criminally investigate or prosecute any alcohol or drug abuse patient.[facility] Care Team (unrecognized sect ion and content) Personnel Name: HORTENSIA WELLS DO Address: [address] [place] [address] Physicians [place], [place] [id number] Care Team Personnel Name: PRISCILLA, HORTENSIA DO Position: P4 Physician - Primary Care Member Role: Primary Care Physician Address: Address: [address] [place] [address] Care Team Related Persons Name: KIMBERLY HOLLOWAY Care Team Personnel Name: HORTENSIA WELLS Position: P4 Physician - Primary Care Member Role: Primary Care Physician Address: [address] [place] [address] Telecom: Care Team Related Persons Name: KIMBERLY HOLLOWAY Care Team Personnel Name: HORTENSIA WELLS DO Position: P4 Physician - Primary Care Member Role: Primary Care Physician Address: [address] [place] [address] Telecom: Care Team Related Persons Name: RAINE HOLLOWAY Name: RAINE HOLLOWAY (unrecognized sect ion and content) No Status Records FoundNo Status Records FoundNo Status Records Found INFORMATION SOURCE (unrecogn ized section and content) DATE CREATED AUTHOR 11/30/2021 [facility] DATE CREATED AUTHOR AUTHOR'S ORGANIZ ATION 01/08/2024 [facility] ([place]) DATE CREATED AUTHOR AUTHOR'S ORGANIZ ATION 03/23/2025 [facility] FOR RECORDS PERTAINING TO PATIENTS WHO ARE OR HAVE BEEN ENROLLED IN A CHEMICAL DEPENDENCY/SUBSTANCEABUSE PROGRAM, SOME INFORMATION MAY BE OMITTED. This clinical summary was aggregated from multiple sources. Caution should be exercised in using it in the provision of clinical care. This summary normalizes information from multiple sources, and as a consequence, information in this document may materially change the coding, format and clinical context of patient data. In addition, data may be omitted in some cases. CLINICAL DECISIONS SHOULD BE BASED ON THE PRIMARY CLINICAL RECORDS. [employer] [facility]. provides no warranty or guarantee of the accuracy or completeness of information in this document.
== END | disposition home or self-care (01) ==
PROVIDERS: Referring Provider Otolaryngology; Visit Provider Otolaryngology
DX: G47.33 Obstructive sleep apnea (adult) (pediatric) (principal)
CPT/HCPCS: 95806

== ENCOUNTER → 2025-07-12 | Outpatient (CLI) | payer OTHER, SELFPAY ==
--- OUTSIDE RECORDS SUMMARY | 2025-07-12 19:53 | XMS RPT_ITS | CCD ---
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 Hortensia Ponce Primary Care Physician Claudio GAMBINO, Dr. Murphy Attending Physician [phone] Claudio GAMBINO, Dr. Murphy Referring Provider [phone] Laura Rand Attending Unavailable Hortensia Wells Referring Unavailable Hortensia Wells Primary Care Unavailable Jeffrey Snyder Referring Unavailable Jeffrey Snyder Attending Unavailable Hortensia Wells Primary Care Unavailable Medications Current Medications Medication Drug Class(es) Dates Sig (Normalized) Sig (Original) ibuprofen 600 mg oral tablet (1 source) Nonsteroidal Anti-inflammator y Drug Start: 2 take 1 tablet by mouth every eight hours as needed for pain methylPREDNISolone Dosepak 4 mg tablet (1 source) Start: 2 End: 2 methylPREDNISolone Dosepak 4 mg tablet 1 packet(s), Oral, qDay, as directed on package labeling, # 21 tab(s), 0 Refill(s) Start Date: 09/15/21 Stop Date: 09/21/21 Status: Ordered omeprazole 20 mg delayed release oral capsule (4 sources) Proton Pump Inhibitor Start: 4 omeprazole 20 mg oral delayed release capsule Dose : 20 mg = 1 cap(s), Oral, qDay, # 90 cap(s), 0 Refill(s), Pharmacy: [facility]/pharmacy #[id number], 174, cm, 12/30/23 10:19:00 EDT, Height, kg, 12/30/23 10:19:00 EDT, Dosing Weight Start Date: 12/30/23 Status: Ordered Quantity: 90.0 Unit: cap(s) Repeat number: 1 Start: 02-06-2020 End: 05-06-2020 omeprazole 20 mg oral delaye d release capsule Dose : 20 mg = 1 cap(s), Oral, qDay, # 30 cap(s), 2 Refill(s), Pharmacy: [id number] [facility], GERD (gastroesophageal reflux disease), 174.5, cm, 02/06/20 15:48:00 EDT, Height, kg, 02/06/20 15:48:00 EDT, Dosing Weight Start Date: 02/06/20 Stop Date: 05/06/20 Status: Ordered Problems Problem Classification Problem Date Documented Date Episodic/Chronic Disorders of teeth and jaw (5 sources) Dental caries 04-25-2020 Episodic Esophageal disorders (5 sources) Gastroesophageal reflux disease 04-25-2020 Chronic Joint disorders and dislocations; trauma-related (1 source) Osteochondropathy; Translations: [Dislocation of other parts of thorax, initial encounter] 12-29-2020 Episodic Other connective tissue disease (1 source) Olecranon bursitis; Translations: [Olecranon bursitis, unspecified elbow] 09-20-2021 Episodic Other screening for suspected conditions (not mental disorders or infectious disease) (2 sources) Encounter for screening for malignant neoplasm of prostate; Translations: [Screening for malignant neoplasm done] Onset: 01-17-2025 Episodic Residual codes; unclassified (1 source) Obstructive sleep apnea (adult) (pediatric); Translations: [Obstructive sleep apnea (adult) (pediatric)] Onset: 04-27-2025 Chronic Results Test Name Value Interpretation Reference Range Facility .Auto Diffon 01-17-2025 Basophil, Absolute 0.0 10 3/mcL Normal 0.0-0.3 [facility] Comment on above: Performed By: #### L IPID, CBC, ADIFF, ANEU, PSA, GFR, CMP #### [address] [address] Basophils/100 WBC (Bld) 0.3 % Normal 0.0-2.5 [facility] Comment on above: Performed By: #### L IPID, CBC, ADIFF, ANEU, PSA, GFR, CMP #### [address] [address] Eosinophil, Absolute 0.0 10 3/mcL Normal 0.0-0.7 [facility] Comment on above: Performed By: #### L IPID, CBC, ADIFF, ANEU, PSA, GFR, CMP #### [address] [address] Eosinophils/100 WBC (Bld) 0.7 % Normal 0.0-6.0 [facility] Comment on above: Performed By: #### L IPID, CBC, ADIFF, ANEU, PSA, GFR, CMP #### [address] [address] Lymphocyte, Absolute 1.7 10 3/mcL Normal 0.9-4.3 [facility] Comment on above: Performed By: #### L IPID, CBC, ADIFF, ANEU, PSA, GFR, CMP #### [address] [address] Lymphocytes/100 WBC (Bld) 25.6 % Normal 20.0-40.0 [facility] Comment on above: Performed By: #### L IPID, CBC, ADIFF, ANEU, PSA, GFR, CMP #### [address] [address] Monocyte, Absolute 0.6 10 3/mcL Normal 0.1-1.4 [facility] Comment on above: Performed By: #### L IPID, CBC, ADIFF, ANEU, PSA, GFR, CMP #### [address] [address] Monocytes/100 WBC (Bld) 9.8 % Normal 2.0-13.0 [facility] Comment on above: Performed By: #### L IPID, CBC, ADIFF, ANEU, PSA, GFR, CMP #### [address] [address] Neutrophils/100 WBC (Bld) 63.6 % Normal 50.0-75.0 [facility] Comment on above: Performed By: #### L IPID, CBC, ADIFF, ANEU, PSA, GFR, CMP #### [address] [address] .GFRon 01-17-2025 Estimated Glomerular Filtration Rate 69 ml/min/1.73sqm Normal [facility] Comment on above: Result Comment: Stages of [...] CBC, ADIFF, ANEU, PSA, GFR, CMP #### [address] [address] .NEUABSon 01-17-2025 Neutrophil, Absolute 4.1 10 3/mcL Normal 2.3-8.1 [facility] Comment on above: Performed By: #### L IPID, CBC, ADIFF, ANEU, PSA, GFR, CMP #### [address] [place] [place], [place] [address] CBCon 01-17-2025 Erythrocyte distribution width (RBC) [Ratio] 12.7 % Normal 11.5-15.5 [facility] Comment on above: Performed By: #### L IPID, CBC, ADIFF, ANEU, PSA, GFR, CMP #### [id number] [place], [place] [address] Hematocrit (Bld) [Volume fraction] 44.4 % Normal 40.0-52.0 [facility] Comment on above: Performed By: #### L IPID, CBC, ADIFF, ANEU, PSA, GFR, CMP #### [place] [address] Hgb 15.2 G/dL Normal 13.0-17.5 [facility] Comment on above: Performed By: #### L IPID, CBC, ADIFF, ANEU, PSA, GFR, CMP #### [place] [address] MCH (RBC) [Entitic mass] 30.1 pg Normal 27.0-33.0 [facility] Comment on above: Performed By: #### L IPID, CBC, ADIFF, ANEU, PSA, GFR, CMP #### [place] [address] MCHC 34.2 G/dL Normal 32.0-36.0 [facility] Comment on above: Performed By: #### L IPID, CBC, ADIFF, ANEU, PSA, GFR, CMP #### [place] [address] MCV (RBC) [Entitic vol] 88.0 fL Normal 81.0-100.0 [facility] Comment on above: Performed By: #### L IPID, CBC, ADIFF, ANEU, PSA, GFR, CMP #### [place] [address] Platelet 207 10 3/mcL Normal 150-450 [facility] Comment on above: Performed By: #### L IPID, CBC, ADIFF, ANEU, PSA, GFR, CMP #### [place] [address] Platelet mean volume (Bld) [Entitic vol] 8.4 fL Normal 6.4-10.5 [facility] Comment on above: Performed By: #### L IPID, CBC, ADIFF, ANEU, PSA, GFR, CMP #### [place] [address] RBC 5.04 10 6/mcL Normal 4.50-6.00 [facility] Comment on above: Performed By: #### L IPID, CBC, ADIFF, ANEU, PSA, GFR, CMP #### [address] [address] WBC 6.5 10 3/mcL Normal 4.5-10.8 [facility] Comment on above: Performed By: #### L IPID, CBC, ADIFF, ANEU, PSA, GFR, CMP #### [address] [address] CMPon 01-17-2025 Albumin Level 3.8 G/dL Normal 3.5-5.0 [facility] Comment on above: Performed By: #### L IPID, CBC, ADIFF, ANEU, PSA, GFR, CMP #### [address] [address] Albumin/Globulin [Mass ratio] 1.1 {ratio} Normal 1.1-2.5 [facility] Comment on above: Performed By: #### L IPID, CBC, ADIFF, ANEU, PSA, GFR, CMP #### [address] [address] ALP [Catalytic activity/Vol] 98 U/L Normal 40-135 [facility] Comment on above: Performed By: #### L IPID, CBC, ADIFF, ANEU, PSA, GFR, CMP #### [address] [address] ALT [Catalytic activity/Vol] 42 U/L Normal 16-63 [facility] Comment on above: Performed By: #### L IPID, CBC, ADIFF, ANEU, PSA, GFR, CMP #### [address] [address] AST [Catalytic activity/Vol] 23 U/L Normal 10-40 [facility] Comment on above: Performed By: #### L IPID, CBC, ADIFF, ANEU, PSA, GFR, CMP #### [address] [address] Bili Total 0.8 mg/dL Normal 0.2-1.0 [facility] Comment on above: Result Comment: Use of this assay is not recommended for patients undergoing treatment with eltrombopag due to the potential for falsely elevated results. Performed By: #### L IPID, CBC, ADIFF, ANEU, PSA, GFR, CMP #### [place] [address] BUN/Creatinine Ratio 15 ratio Normal 7-27 [facility] Comment on above: Performed By: #### L IPID, CBC, ADIFF, ANEU, PSA, GFR, CMP #### [place] [address] Calcium [Mass/Vol] 9.0 mg/dL Normal 8.4-10.2 [facility] Comment on above: Performed By: #### L IPID, CBC, ADIFF, ANEU, PSA, GFR, CMP #### [place] [address] Chloride [Moles/Vol] 106 mmol/L Normal 98-107 [facility] Comment on above: Performed By: #### L IPID, CBC, ADIFF, ANEU, PSA, GFR, CMP #### [place] [address] CO2 [Moles/Vol] 26 mmol/L Normal 22-29 [facility] Comment on above: Performed By: #### L IPID, CBC, ADIFF, ANEU, PSA, GFR, CMP #### [address] [address] Creatinine [Mass/Vol] 1.26 mg/dL High 0.67-1.17 [facility] Comment on above: Performed By: #### L IPID, CBC, ADIFF, ANEU, PSA, GFR, CMP #### [place] [address] Electrolyte Balance 9.0 mEq/L Normal 4.0-15.0 [facility] Comment on above: Performed By: #### L IPID, CBC, ADIFF, ANEU, PSA, GFR, CMP #### [address] [address] Globulin 3.5 G/dL Normal 2.7-4.4 [facility] Comment on above: Performed By: #### L IPID, CBC, ADIFF, ANEU, PSA, GFR, CMP #### [address] [address] Glucose [Mass/Vol] 89 mg/dL Normal 70-105 [facility] Comment on above: Performed By: #### L IPID, CBC, ADIFF, ANEU, PSA, GFR, CMP #### [address] [address] Potassium [Moles/Vol] 4.6 mmol/L Normal 3.5-5.1 [facility] Comment on above: Performed By: #### L IPID, CBC, ADIFF, ANEU, PSA, GFR, CMP #### [address] [address] Sodium [Moles/Vol] 141 mmol/L Normal 136-145 [facility] Comment on above: Performed By: #### L IPID, CBC, ADIFF, ANEU, PSA, GFR, CMP #### [address] [address] Total Protein 7.3 G/dL Normal 6.4-8.2 [facility] Comment on above: Performed By: #### L IPID, CBC, ADIFF, ANEU, PSA, GFR, CMP #### [address] [address] Urea nitrogen [Mass/Vol] 19 mg/dL High 7-18 [facility] Comment on above: Performed By: #### L IPID, CBC, ADIFF, ANEU, PSA, GFR, CMP #### [address] [address] LABORATORYOrdered By: SYSTEM SYSTEM on 01-17-2025 Albumin [...] 10^3/mcL AO Workflow SS LABORATORYOrdered By: Blas Ganies on 01-17-2025 Cholesterol [Mass/Vol] 163 mg/dL Normal [...] 01-17-2025 Cholesterol [Mass/Vol] 163 mg/dL Normal 0-200 [facility] Comment on above: Result Comment: Chol esterol Reference Interval: Less than 200 Desirable 200-239 Borderline high risk 240 and above High risk Performed By: #### L IPID, CBC, ADIFF, ANEU, PSA, GFR, CMP #### [address] [place], [place] [address] Cholesterol in HDL [Mass/Vol] 55 mg/dL Normal 40-60 [facility] Comment on above: Performed By: #### L IPID, CBC, ADIFF, ANEU, PSA, GFR, CMP #### [address] [place], [place] [address] Cholesterol in LDL [Mass/Vol] 98 mg/dL Normal 0-130 [facility] Comment on above: Performed By: #### L IPID, CBC, ADIFF, ANEU, PSA, GFR, CMP #### [place] [address] Triglyceride [Mass/Vol] 51 mg/dL Normal 0-150 [facility] Comment on above: Result Comment: Trig lyceride Reference Interval: Less than 150 Normal 150-199 Borderline high risk 200-499 High risk 500 or higher Very high risk Performed By: #### L IPID, CBC, ADIFF, ANEU, PSA, GFR, CMP #### [place] [address] PSAon 01-17-2025 Prostate Specific Antigen 0.44 ng/mL Normal 0.00-4.00 [facility] Comment on above: Performed By: #### L IPID, CBC, ADIFF, ANEU, PSA, GFR, CMP #### [place] [id number] .Auto Diffon 01-07-2024 Basophil, Absolute 0.0 10 3/mcL Normal 0.0-0.2 [facility] ([place]) Comment on above: Performed By: #### C MP, TSH, PSA, ADIFF, CBC, LIPID, ANEU, GFR #### [place] [address] #### HCV1 #### [address] [address] Basophils/100 WBC (Bld) 0.2 % Normal 0.0-2.5 [facility] ([place]) Comment on above: Performed By: #### C MP, TSH, PSA, ADIFF, CBC, LIPID, ANEU, GFR #### [place] [address] #### HCV1 #### [address] [address] Eosinophil, Absolute 0.0 10 3/mcL Normal 0.0-0.4 [facility] ([place]) Comment on above: Performed By: #### C MP, TSH, PSA, ADIFF, CBC, LIPID, ANEU, GFR #### [address] [address] #### HCV1 #### [address] [address] Eosinophils/100 WBC (Bld) 0.5 % Normal 0.0-7.0 [facility] ([place]) Comment on above: Performed By: #### C MP, TSH, PSA, ADIFF, CBC, LIPID, ANEU, GFR #### [address] [address] #### HCV1 #### [address] [address] Lymphocyte, Absolute 1.8 10 3/mcL Normal 0.8-3.9 [facility] ([place]) Comment on above: Performed By: #### C MP, TSH, PSA, ADIFF, CBC, LIPID, ANEU, GFR #### [address] [address] #### HCV1 #### [address] [address] Lymphocytes/100 WBC (Bld) 26.4 % Normal 10.0-50.0 [facility] ([place]) Comment on above: Performed By: #### C MP, TSH, PSA, ADIFF, CBC, LIPID, ANEU, GFR #### [address] [address] #### HCV1 #### [address] [address] Monocyte, Absolute 0.7 10 3/mcL Normal 0.2-1.0 [facility] ([place] Comment on above: Performed By: #### C MP, TSH, PSA, ADIFF, CBC, LIPID, ANEU, GFR #### [address] [address] #### HCV1 #### [address] [address] Monocytes/100 WBC (Bld) 10.8 % Normal 1.7-13.0 [facility] ([place]) Comment on above: Performed By: #### C MP, TSH, PSA, ADIFF, CBC, LIPID, ANEU, GFR #### [address] [address] #### HCV1 #### [address] [address] Neutrophils/100 WBC (Bld) 62.1 % Normal 37.0-80.0 [facility] ([place]) Comment on above: Performed By: #### C MP, TSH, PSA, ADIFF, CBC, LIPID, ANEU, GFR #### [address] [address] #### HCV1 #### [address] [address] .GFRon 01-07-2024 GFR 78 ml/min/1.73sqm Normal [facility] ([place]) Comment on above: Result Comment: GFR [...] PSA, ADIFF, CBC, LIPID, ANEU, GFR #### [address] [address] #### HCV1 #### [address] [address] GFR Non- 64 ml/min/1.73sqm Normal [facility] ([place]) Comment on above: Result Comment: GFR [...] PSA, ADIFF, CBC, LIPID, ANEU, GFR #### [address] [address] #### HCV1 #### [address] [address] .NEUABSon 01-07-2024 Neutrophil, Absolute 4.2 10 3/mcL Normal 2.9-6.2 [facility] ([place] Comment on above: Performed By: #### C MP, TSH, PSA, ADIFF, CBC, LIPID, ANEU, GFR #### [place] [address] #### HCV1 #### [place] [address] CBCon 01-07-2024 Erythrocyte distribution width (RBC) [Ratio] 12.8 % Normal 11.5-14.5 [facility] ([place]) Comment on above: Performed By: #### C MP, TSH, PSA, ADIFF, CBC, LIPID, ANEU, GFR #### [place] [address] #### HCV1 #### [place] [address] Hematocrit (Bld) [Volume fraction] 43.4 % Normal 42.0-52.0 [facility] ([place]) Comment on above: Performed By: #### C MP, TSH, PSA, ADIFF, CBC, LIPID, ANEU, GFR #### [place] [address] #### HCV1 #### [place] [address] Hgb 14.8 G/dL Normal 14.0-18.0 [facility] ([place]) Comment on above: Performed By: #### C MP, TSH, PSA, ADIFF, CBC, LIPID, ANEU, GFR #### [place] [address] #### HCV1 #### [place] [address] MCH (RBC) [Entitic mass] 30.2 pg Normal 27.0-31.2 [facility] ([place]) Comment on above: Performed By: #### C MP, TSH, PSA, ADIFF, CBC, LIPID, ANEU, GFR #### [place] [address] #### HCV1 #### [place] [address] MCHC 34.1 G/dL Normal 31.8-35.4 [facility] ([place] Comment on above: Performed By: #### C MP, TSH, PSA, ADIFF, CBC, LIPID, ANEU, GFR #### [place] [address] #### HCV1 #### [place] [address] MCV (RBC) [Entitic vol] 88.8 fL Normal 80.0-94.0 [facility] ([place]) Comment on above: Performed By: #### C MP, TSH, PSA, ADIFF, CBC, LIPID, ANEU, GFR #### [place] [address] #### HCV1 #### [place] [address] Platelet 208 10 3/mcL Normal 130-400 [facility] ([place]) Comment on above: Performed By: #### C MP, TSH, PSA, ADIFF, CBC, LIPID, ANEU, GFR #### [place] [address] #### HCV1 #### [place] [address] Platelet mean volume (Bld) [Entitic vol] 8.6 fL Normal 7.4-10.4 [facility] ([place]) Comment on above: Performed By: #### C MP, TSH, PSA, ADIFF, CBC, LIPID, ANEU, GFR #### [address] [address] #### HCV1 #### [address] [address] RBC 4.89 10 6/mcL Normal 4.04-6.13 [facility] ([place]) Comment on above: Performed By: #### C MP, TSH, PSA, ADIFF, CBC, LIPID, ANEU, GFR #### [address] [address] #### HCV1 #### [address] [address] WBC 6.7 10 3/mcL Normal 4.6-10.8 [facility] ([place]) Comment on above: Performed By: #### C MP, TSH, PSA, ADIFF, CBC, LIPID, ANEU, GFR #### [address] [address] #### HCV1 #### [address] [address] CMPon 01-07-2024 Albumin Level 4.0 G/dL Normal 3.5-5.0 [facility] ([place]) Comment on above: Performed By: #### C MP, TSH, PSA, ADIFF, CBC, LIPID, ANEU, GFR #### [address] [address] #### HCV1 #### [address] [address] Albumin/Globulin [Mass ratio] 1.3 {ratio} Normal 1.1-2.5 [facility] ([place]) Comment on above: Performed By: #### C MP, TSH, PSA, ADIFF, CBC, LIPID, ANEU, GFR #### [address] [address] #### HCV1 #### [address] [address] ALP [Catalytic activity/Vol] 120 U/L Normal 40-135 [facility] ([place]) Comment on above: Performed By: #### C MP, TSH, PSA, ADIFF, CBC, LIPID, ANEU, GFR #### [address] [address] #### HCV1 #### [place] [address] ALT [Catalytic activity/Vol] 48 U/L Normal 16-63 [facility] ([place]) Comment on above: Performed By: #### C MP, TSH, PSA, ADIFF, CBC, LIPID, ANEU, GFR #### [place] [address] #### HCV1 #### [place] [address] AST [Catalytic activity/Vol] 22 U/L Normal 10-40 [facility] ([place]) Comment on above: Performed By: #### C MP, TSH, PSA, ADIFF, CBC, LIPID, ANEU, GFR #### [place] [address] #### HCV1 #### [place] [address] Bili Total 0.9 mg/dL Normal 0.2-1.0 [facility] ([place]) Comment on above: Result Comment: Use of this assay is not recommended for patients undergoing treatment with eltrombopag due to the potential for falsely elevated results. Performed By: #### C MP, TSH, PSA, ADIFF, CBC, LIPID, ANEU, GFR #### [address] [address] #### HCV1 #### [place] [address] BUN/Creatinine Ratio 12 ratio Normal 7-27 [facility] ([place]) Comment on above: Performed By: #### C MP, TSH, PSA, ADIFF, CBC, LIPID, ANEU, GFR #### [place] [address] #### HCV1 #### [address] [address] Calcium [Mass/Vol] 8.9 mg/dL Normal 8.4-10.2 [facility] ([place]) Comment on above: Performed By: #### C MP, TSH, PSA, ADIFF, CBC, LIPID, ANEU, GFR #### [place] [address] #### HCV1 #### [place] [address] Chloride [Moles/Vol] 106 mmol/L Normal 98-107 [facility] ([place] Comment on above: Performed By: #### C MP, TSH, PSA, ADIFF, CBC, LIPID, ANEU, GFR #### [place] [address] #### HCV1 #### [place] [address] CO2 [Moles/Vol] 26 mmol/L Normal 22-29 [facility] ([place]) Comment on above: Performed By: #### C MP, TSH, PSA, ADIFF, CBC, LIPID, ANEU, GFR #### [place] [address] #### HCV1 #### [place] [address] Creatinine [Mass/Vol] 1.20 mg/dL Normal 0.70-1.30 [facility] ([place]) Comment on above: Performed By: #### C MP, TSH, PSA, ADIFF, CBC, LIPID, ANEU, GFR #### [place] [address] #### HCV1 #### [place] [address] Electrolyte Balance 9.0 mEq/L Normal 4.0-15.0 [facility] ([place]) Comment on above: Performed By: #### C MP, TSH, PSA, ADIFF, CBC, LIPID, ANEU, GFR #### [place] [address] #### HCV1 #### [address] [address] Globulin 3.0 G/dL Normal [facility] ([place]) Comment on above: Performed By: #### C MP, TSH, PSA, ADIFF, CBC, LIPID, ANEU, GFR #### [address] [address] #### HCV1 #### [address] [address] Glucose [Mass/Vol] 96 mg/dL Normal 70-105 [facility] ([place]) Comment on above: Performed By: #### C MP, TSH, PSA, ADIFF, CBC, LIPID, ANEU, GFR #### [address] [address] #### HCV1 #### [address] [address] Potassium [Moles/Vol] 5.4 mmol/L High 3.5-5.1 [facility] ([place]) Comment on above: Performed By: #### C MP, TSH, PSA, ADIFF, CBC, LIPID, ANEU, GFR #### [address] [address] #### HCV1 #### [address] [address] Sodium [Moles/Vol] 141 mmol/L Normal 136-145 [facility] ([place]) Comment on above: Performed By: #### C MP, TSH, PSA, ADIFF, CBC, LIPID, ANEU, GFR #### [address] [address] #### HCV1 #### [address] [address] Total Protein 7.0 G/dL Normal 6.4-8.2 [facility] ([place]) Comment on above: Performed By: #### C MP, TSH, PSA, ADIFF, CBC, LIPID, ANEU, GFR #### [address] [address] #### HCV1 #### [address] [address] Urea nitrogen [Mass/Vol] 15 mg/dL Normal 7-18 [facility] ([place]) Comment on above: Performed By: #### C MP, TSH, PSA, ADIFF, CBC, LIPID, ANEU, GFR #### [address] [address] #### HCV1 #### [place] [id number] HCVon 01-07-2024 Hep C Ab Non-Reactive Normal Non-Reactive [facility] ([place] Comment on above: Performed By: #### C MP, TSH, PSA, ADIFF, CBC, LIPID, ANEU, GFR #### [address] [address] #### HCV1 #### [place] [address] Hep C Ab Int Normal [facility] ([place]) Comment on above: Result Comment: Nonr [...] PSA, ADIFF, CBC, LIPID, ANEU, GFR #### [address] [address] #### HCV1 #### [place] [address] LABORATORYOrdered By: SYSTEM SYSTEM on 01-07-2024 Albumin [...] 01-07-2024 Cholesterol [Mass/Vol] 176 mg/dL Normal 0-200 [facility] ([place]) Comment on above: Result Comment: Chol esterol Reference Interval: Less than 200 Desirable 200-239 Borderline high risk 240 and above High risk Performed By: #### C MP, TSH, PSA, ADIFF, CBC, LIPID, ANEU, GFR #### [place] [address] #### HCV1 #### [address] [address] Cholesterol in HDL [Mass/Vol] 65 mg/dL High 40-60 [facility] ([place]) Comment on above: Performed By: #### C MP, TSH, PSA, ADIFF, CBC, LIPID, ANEU, GFR #### [address] [address] #### HCV1 #### [address] [address] Cholesterol in LDL [Mass/Vol] 101 mg/dL Normal 0-130 [facility] ([place]) Comment on above: Performed By: #### C MP, TSH, PSA, ADIFF, CBC, LIPID, ANEU, GFR #### [place] [address] #### HCV1 #### [address] [address] Triglyceride [Mass/Vol] 49 mg/dL Normal 0-150 [facility] ([place]) Comment on above: Result Comment: Trig lyceride Reference Interval: Less than 150 Normal 150-199 Borderline high risk 200-499 High risk 500 or higher Very high risk Performed By: #### C MP, TSH, PSA, ADIFF, CBC, LIPID, ANEU, GFR #### [place] [address] #### HCV1 #### [place] [id number] PSAon 01-07-2024 Prostate Specific Antigen 0.61 ng/mL Normal 0.00-4.00 [facility] ([place]) Comment on above: Performed By: #### C MP, TSH, PSA, ADIFF, CBC, LIPID, ANEU, GFR #### [address] [address] #### HCV1 #### [place] [address] TSHon 01-07-2024 TSH Qn 1.68 m[IU]/L Normal 0.36-3.74 [facility] ([place]) Comment on above: Performed By: #### C MP, TSH, PSA, ADIFF, CBC, LIPID, ANEU, GFR #### [address] [address] #### HCV1 #### [place] [address] LABORATORYOrdered By: Lino Douglass on 09-18-2021 Albumin [...] ml/min/1.73sqm Invalid Interpretation Code AO Chemistry S Vital Signs Date Time Vital Sign Value Performing Clinician Faci lity 11-20-2021 11:39-0400 Diastolic Blood Pressure NBP [address] AMOL MAYORGA MD [facility] 11-20-2021 11:39-0400 Heart rate 87 /min DR AMOL MAYORGA MD [facility] 11-20-2021 11:39-0400 Respiratory rate 16 /min DR AMOL MAYORGA MD [facility] 11-20-2021 11:39-0400 Systolic Blood Pressure NBP [address] [facility] [facility] 11-20-2021 11:28-0400 Diastolic Blood Pressure NBP [address] AMOL MAYORGA MD [facility] 11-20-2021 11:28-0400 Heart rate 89 /min DR AMOL MAYORGA MD [facility] 11-20-2021 11:28-0400 Respiratory rate 14 /min DR AMOL MAYORGA MD [facility] 11-20-2021 11:28-0400 Systolic Blood Pressure NBP [address] AMOL MAYORGA MD [facility] 11-20-2021 11:22-0400 Diastolic Blood Pressure NBP [address] AMOL MAYORGA MD [facility] 11-20-2021 11:22-0400 Heart rate 88 /min DR AMOL MAYORGA MD [facility] 11-20-2021 11:22-0400 Respiratory rate 16 /min DR AMOL MAYORGA MD [facility] 11-20-2021 11:22-0400 Systolic Blood Pressure NBP [address] AMOL MAYORGA MD [facility] 11-20-2021 11:10-0400 Body temperature 98.06 [degF] DR AMOL MAYORGA MD [facility] 11-20-2021 09:52-0400 Body temperature 97.7 [degF] DR AMOL MAYORGA MD [facility] 11-20-2021 09:52-0400 Heart rate 75 /min DR AMOL MAYORGA MD [facility] 11-20-2021 09:48-0400 Body height 172.[address] AMOL MAYORGA MD [facility] 11-20-2021 09:48-0400 Body weight 81.[address] AMOL MAYORGA MD [facility] 11-20-2021 09:48-0400 Body weight 27.39 kg/m2 DR AMOL MAYORGA MD [facility] Encounters Encounter Date Encounter Type Care Provider Facility Start: 06-14-2025 ambulatory Laura Chávez ty:[facility] Start: 04-16-2025 End: 04-16-[address] Hortensia Wells DO Work Phone: -[facility] Start: 04-16-2025 End: 04-16-[address] Jeffrey Snyder MD -[facility] Work Phone: Start: 04-16-2025 End: 04-16-2025 ambulatory Jeffrey Snyder Facility:[facility] Start: 03-04-2025 End: 03-04-[address] HORTENSIA WELLS DO Facility:[facility] Start: 03-04-2025 End: 03-04-[address] AMOL MAYORGA MD [facility] Start: 01-17-2025 End: 01-17-[address] HORTENSIA WELLS DO [facility] Start: 01-17-2025 Encounter for genera l adult medical examination without abnormal findings DR HORTENSIA WELLS DO [facility] Start: 01-17-2025 End: 01-17-[address] HORTENSIA WELLS DO [facility] Start: 01-17-2025 End: 01-17-2025 Well adult monitoring check done DR HORTENSIA WELLS DO [facility] Start: 01-07-2024 End: 01-07-[address] HORTENSIA WELLS DO Facility: Start: 01-07-2024 End: 01-07-[address] HORTENSIA WELLS DO [facility] Start: 11-20-2021 End: 11-20-[address] AMOL MAYORGA MD [facility] Start: 09-18-2021 End: 09-18-[address] HORTENSIA WELLS DO [facility] Start: 03-26-2020 End: 03-26-2020 Patient encounter procedure External Provider [facility] Start: 03-26-2020 Results Only External Provider Exter nal-NonCCF Procedures Date Procedure Procedure Detail Performing Clinician Start: 03-26-2020 EXTERNAL IMAGING [employer] al Provider Start: 08-01-1992 Nasal (qualifier value) DR HORTENSIA WELLS DO Vaccine refused by patient COVID-19 vaccination declined( Confirmed ) DR HORTENSIA WELLS DO Plan of Treatment Date Care Activity Detail Author Start: 04-01-2020 Influenza vaccination INFLUENZA (#1) [facility] Start: 2018 DIABETES SCREEN DIABETES SCREEN [facility] Start: 2008 LIPID SCREEN LIPID SCREEN [facility] Start: 1992 Urine microalbumin profile DTAP,TDAP ,TD (1 - Tdap) [facility] Start: 11-08-1991 HEPATITIS C SCREENING HEPATITIS C SC REENING [facility] Start: 11-08-1991 HIV SCREENING HIV SCREENING [facility] Immunizations Immunization Date Immunization Notes Care Provider Fa cility 09-15-2021 tetanus toxoid, redu yosi diphtheria toxoid, and acellular pertussis vaccine, adsorbed; Translations: [Boostrix (Tdap)] DR HORTENSIA WELLS DO [facility] Payers Date Payer Category Payer Self-pay 2025 Unknown [id number] 2025 Private Health Insurance [id number] 2025 Unknown [id number] 2024 Unknown [id number] 2018 Unknown KATHERINE SALCEDO PPO [id number] 2018-Present PPO [id number] 2000 Unknown [id number] 1973 Unknown [id number] 1975 Unknown [id number] 1973 Unknown [id number] 27 Unknown [id number] Unknown [id number] 62 Unknown [id number] 62 Social History Date Type Detail Facility Tobacco smoking stat [facility] Unknown if ever smoked [facility] Sex Assigned At [facility] on [facility] Exposure to SARS-CoV -2 (event) Not sure [facility] Start: 03-03-2020 End: 09-12-2021 Never smoked tobacco (finding) [facility] Start: 1975 Sex Assigned At Male A [facility] Sexual Orientation [facility] Start: 01-24-2019 Sex Male (finding) [facility] Sex Male [facility] Functional Status Date Assessment Result Facility 11-20-2021 Functional Status [facility] 11-20-2021 Functional Status [facility] Mental Status Date Assessment Result Facility 11-20-2021 Mental Status [facility] 11-20-2021 Mental Status [facility] Clinical Notes 11-20-2021 to 03-04-2025 Note Date & Type Note Facility 03-04-2025 Evaluation + Plan note Extrac anuj from: Title:Clinical Document Author:AMOL MAYORGA Date:03/04/25 [place] ADMISSION HISTORY AN D PHYSICIAL CHIEF COMPLAINT: HISTORY OF PRESENT ILLNESS: REVIEW OF SYSTEMS: ACTIVE PROBLEMS: (3) COVID-19 vaccination declined ([id number]) GERD (gastroesophageal reflux disease) (612580369) Tooth caries (150290796) MEDICATIONS: Active Inpt Meds: None Active PRN Meds: None One Time Meds: None Active IV Meds: Lactated Ringers Infusion 1,000 mL (LR 1,000 mL) Start: 03/04/25 9:28:00 EDT, Rate: 50 mL/hr, 03/04/25 9:28:00 EDT ALLERGIES: (1) NKA FAMILY HISTORY: SOCIAL HISTORY: PHYSICAL EXAM: VITALS: StaclcTfblZELnzlvTSOnM5ETH0EagmOo(kg) 03/04 09:3436.3--135046ZX51/04 85.5 24 Hr Tmax: 36.3 at 03/04 [...] Date:07/09/2025 09:00:00 AM Scheduled Provider:HORTENSIA WELLS DO Location:[facility] Appointment Type:[facility] 08-04-2025 Hospital Discharge instructions Patient Education 03/04/2025 [...] a slower pace than normal. ?Eat soft, tlid-yh-tanuvu foods. Take rhto-csx-rletuws or prescription medicines only as told by [...] 03/01/2005 Document Revised: 05/10/2018 Document Reviewed: 09/28/2016 [employer] Patient Education 2020 [employer] 03/04/2025 10:34:02 Monitored Anesthesia Care, Care [...] before eating solid foods. General instructions Take aimk-ugn-bcckolg and prescription medicines only as told by [...] 2016 Document Revised: 10/16/2018 Document Reviewed: 2016 [employer] Patient Education 2020 [employer]. Follow Up Care 02/22/2025 09:30:28 With:AMOL MAYORGA Address: [address] [phone] Business (1) When: Unknown [facility] 08-04-2025 Note Date of Service 03/04/2025 Procedure Name EGD with biopsy Consent Taken before procedure Indication Epigastric pain with chronic reflux Location [facility] Pre-Procedure Exam Chronic GERD with epigastric [...] AMOL MAYORGA MD on 03/04/2025 10:35 AM [facility]08-04-2025 Note Discharge Instructions Thank you for allowing [facility] to assist you with your healthcare needs. The following is importantdischarge information regarding your hospital visit. Your Care Team HORTENSIA WELLS DO What to do next Scheduled Follow-Up Appointments Appointment Type When With Where Contact Information StatusPC 07/09/2025 09:00 AM ALFONSO WELLSHORTENSIA [facility] [address] [place] [address] Confirmed Follow Up Appointments Follow Up with AMOL MAYORGA Where:[address] [place] [address]- [phone] Business (1) The Following Activity and Diet [...] slower pace than normal. ? Eat soft, oxwj-rz-vpethu foods. Take nugx-mib-zisqjqc or prescription medicines only as told by [...] 03/01/2005 Document Revised: 05/10/2018 Document Reviewed: 09/28/2016 [employer] Patient Education 2020 [employer] Monitored Anesthesia Care, Care After These [...] before eating solid foods. General instructions Take nmeg-kui-uvqtnkw and prescription medicines only as told by [...] 2016 Document Revised: 10/16/2018 Document Reviewed: 2016 [employer] Patient Education 2020 [employer] Additional Information VACCINATE! IT SAVES LIVES! Members of the community who have not yet received the COVID-19 vaccine and would like to receive it can visit one of [facility] vaccine clinics. There are many vaccine clinic locations within the [facility]. For locations and available times, please visit [email or web address].[place].gov/. It is important to note that some COVID mobile vaccine clinics are held outdoors and may be canceled in rainy or stormy conditions. To learn more about pediatric vaccinations (ages 5-11), we invite you to visit the [facility] webpage. [email or web address]://www.[email or web address]/pages/[email or web address]-Dfcpb-Xdvnpkdsflb-Awcikaexuv-Tvxni-Ndq stions.htmlTo learn more about the COVID-19 vaccine, we invite you to visit the CDC website for a list of frequently asked questions.https://www.cdc.gov/coronavirus/2019-ncov/vaccines/faq.html [facility] Patient Portal Access Instructions: Stay connected with your healthcare team and access your personal medical information anytime with the [facility] Patient Portal. Please follow the directions below to create your [facility] account: 1.Access the email account you provided upon registration to the hospital/physician office.2.Look for an invitation email from [facility].3.Open the email and access the invitation link: AcceptInvitation to [facility].4.Fill in the required worthy to create your account. To access your account, visit [employer]. Click the blue button labeled Access Patient Portal and then log in with the username and password that you created in the steps above. You will be able to view your test results, lab results, a summary of your visits, upcoming appointments and more. There is also a convenient messaging option where you can send secure messages to your p [employer]. In addition, you will have the ability to download any documents or summaries to your computer and/or send the information securely to a physician. Remember that your healthcare information is confidential, so carefully consider who you will allowto register on the [facility] Patient Portal for access to your information. You can also access the [facility] Patient Portal on the [facility] yovanny. Simply click on Patient Portal and then log into your account. If you would like to receive a full copy of your medical records, please contact the [facility] Medical Records Department by calling [phone], Tuesday through Tuesday between 8 a.m. and [...] Call your local pharmacy or go to [email or web address] to find one close to you.3.Make use of household items: Use cat litter or old coffee grounds to dispose medications if other options arenot available. Mix your drugs with these household products, seal them in an airtight container andthrow it into the garbage. Call [facility]: [phone] to be sure your drugs can be [...] aware that I should contact my doctor. Patient/Rod Filler Signature: Date/Time: Relationship to Patient: Witness Name/Signature: Date/Time: [facility]08-04-2025 Anesthesiology Consult note Patient: DEE HOLLOWAY [...] by DAVID MONTES on 03/04/2025 10:30 AM [facility]08-04-2025 Note [place] ADMISSION HISTORY AND PHYSICIAL CHIEF COMPLAINT: HISTORY OF PRESENT ILLNESS: REVIEW OF SYSTEMS: ACTIVE PROBLEMS: (3) COVID-19 vaccination declined ([id number]) GERD (gastroesophageal reflux disease) (897860764) Tooth caries (452510673) MEDICATIONS: Active Inpt Meds: None Active PRN Meds: None One Time Meds: None Active IV Meds: Lactated Ringers Infusion 1,000 mL (LR 1,000 mL) Start: 03/04/25 9:28:00 EDT, Rate: 50 mL/hr, 03/04/25 9:28:00 EDT ALLERGIES: (1) NKA FAMILY HISTORY: SOCIAL HISTORY: PHYSICAL EXAM: VITALS: McndvwKmudNOUfocpINPqW2GWO6EdvrWq(kg) 03/04 09:3436.3--761405WJ85/04 85.5 24 Hr Tmax: 36.3 at 03/04 [...] AMOL MAYORGA MD on 03/04/2025 10:23 AM [facility]08-04-2025 Anesthesiology Consult note Patient: DEE HOLLOWAY Age: 49 years Sex: Male : 1975 Associated Diagnoses: None Author: DAVID MONTES APRN-[employer] Preoperative Information Time of last food or [...] list: Medical Tooth caries / SNOMED CT 744237192 / Confirmed GERD (gastroesophageal reflux disease) / SNOMED CT 633420656 / Confirmed COVID-19 vaccination declined / SNOMED CT 7817783435 / Confirmed Canceled: Dental caries / SNOMED CT 642587294, Active Problems (3) COVID-19 vaccination declined GERD (gastroesophageal reflux disease) Tooth caries Histories Past Medical History: No active or resolved past medical history items have been selected or recorded. Family History: Cholecystitis Father Comments: 02/06/2020 15:56 Cherelle Junior RN Had cholecystectomy Brother Comments: 02/06/2020 15:56 Cherelle Junior RN Had cholecystectomy Coronary artery disease Father Procedure history: Nasal (549334696) in 1992 at 19 Years. Social History: Social & Psychosocial Habits Alcohol 03/04/2025Risk Assessment: Low Risk 03/04/2025 Use: Current Type: Beer Frequency: 1-2 times per year Substance Abuse 03/04/2025Risk Assessment: No Risk 03/04/2025 Use: Never Tobacco 03/04/2025 Tobacco Use: Never (less than 100 in l Exposure to Tobacco Smoke Lives in non-smoking home Home/Environment 03/04/2025 Primary Gastroenterology Manager: Self Nutrition/Health 03/04/2025 Type of diet: Regular [...] Signs (last 24 hrs) Last Charted Temp Jumfzjvs95.3 DegC (MAR 04 09:34) RNI085 mmHg (MAR 04 09:34) DBP83 mmHg (MAR 04 09:34) Measurements from flowsheet : Measurements 03/04/2025 9:34 EDT Height 174 cm Height in inches 68.5 inch(es) Admission Weight 85.5 kg Weight Lbs 188.1 lb [place] Body Weight 69.56 kg Admission Body Mass Index 28.24 m2 03/04/2025 9:30 EDT Height 174 cm [place] Body Weight 69.56 kg Pain assessment: Pain [...] Weight 85.5 kg Weight Lbs 188.1 lb [place] Body Weight 69.56 kg Admission Body Mass [...] level maintained 03/04/2025 9:32 EDT Allergies No Cotton Ginner On Yes Consent Form Signed Yes Patient [...] Person #2 Relationship Daughter Height 174 cm [place] Body Weight 69.56 kg Status N/A Sensory [...] evident Teaching Method Explanation Preferred Spoken Language Faroese Preferred Written Language Faroese Patient's Current Physicians PRISCILLA Discharge To, Anticipated Home independently Prev Test Positive/Diagnosis w/COVID-19 No Current Quarantine/Isolated any Illness No Any Contact with Sick Animals/Birds No Traveled Anywhere in Last 30 Days No N/A Personal Devices, Patient Valuables None Admission Note-Nursing Procedure/Therapy Intake . Assessment and Plan [place] Society of Anesthesiologists (ASA) physical status classification: Class II. Anesthetic Preoperative Plan Premedication: intravenous. Anesthetic technique: MAC. Induction: intravenously. Maintenance airway: Mask. Risks discussed: nausea, vomiting, headache, sore throat, dental injury, hypotension, allergic reaction, serious complications. Informed consent: signed by patient. Digitally Signed by DAVID MONTES on 03/04/2025 10:09 AM [facility]04-22-2022 Evaluation + Plan noteExtracted from: Title:Clinical Document Author:AMOL MAYORGA Date:11/20/21 [place] ADMISSION HISTORY AN D PHYSICIAL CHIEF COMPLAINT: HISTORY OF PRESENT ILLNESS: REVIEW OF SYSTEMS: ACTIVE PROBLEMS: (3) COVID-19 vaccination declined ([id number]) GERD (gastroesophageal reflux disease) (848391263) Tooth caries (703073558) MEDICATIONS: Active Inpt Meds: None Active PRN Meds: None One Time Meds: None Active IV Meds: Lactated Ringers Infusion 1,000 mL (LR 1,000 mL) Start: 11/20/21 9:38:00 EDT, Rate: 50 mL/hr, 11/20/21 9:38:00 EDT ALLERGIES: (1) NKA FAMILY HISTORY: SOCIAL HISTORY: PHYSICAL EXAM: VITALS: AczfmdJiieLHUyevtEECtM7AGV9YbslPv(kg) 11/20 09:5236.5115/71446397--47/22 81.8 24 Hr Tmax: 36.5 at 11/20 [...] changes to the H&P unless noted below. [facility] 04-22-2022 Hospital Discharge instructions Patient Education [...] before eating solid foods. General instructions Take hfli-cht-gcrlfbx and prescription medicines only as told by [...] 2016 Document Revised: 10/16/2018 Document Reviewed: 2016 [employer] Patient Education 2020 [employer]. 11/20/2021 11:27:02 Colon Polyps Colon Polyps Polyps [...] 04/13/2005 Document Revised: 11/02/2018 Document Reviewed: 11/02/2018 [employer] Patient Education 2020 [employer]. 11/20/2021 11:26:48 Colonoscopy, Adult, Care After, Hzgt-ar-Dhxz Colonoscopy, Adult, Care After This sheet gives [...] are soft and easy to digest. Take oqtg-qwm-rvkzdru or prescription medicines only as told by [...] 08/20/2011 Document Revised: 05/18/2018 Document Reviewed: 04/11/2017 [employer] Patient Education 2019 [employer]. Follow Up Care 11/13/2021 07:12:48 With:AMOL MAYORGA MD Address: [address] [place] [phone] When: Unknown Comments:A POLYP WAS TAKEN OUT AND SENT TO THE LAB FOR EVALUATION. YOU WILL BE NOTIFIED OF THE RESULTS IN 7-10 DAYS BY MAIL OR YOU WILL RECEIVE A CALL FROM THE OFFICE WITH THOSE RESULTS. CALL DR MAYORGA WITH ANY QUESTIONS OR CONCERNS. GO TO THE EMERGENCY ROOM WITH ANY URGENT ISSUES. [facility] Evaluation + Plan note No data available for this section [facility] Evaluation noteNo assessment information available [facility] Work Phone: Hospital Discharge instructions No data available for this section [facility] Progress note No data available for this section [facility] Reason for referral (narrative)No reason for referral information availableWCenterville Work Phone: Summary Purpose Family History No Family History Records Found Advance Directives No Advanced Directives Records FoundNo Advanced Directives Records FoundNo Advanced Directives Records Found Chief Complaint and Reason for Visit Chief Complaint Admit Date TRINY April 16, 2025 6:41am Additional Source Comments Source Comments (unrecognize d section and content) In the event this informatio n is protected by the Federal Confidentiality of Alcohol and Drug Abuse Patient Records regulations: The Federal rules restrict any use of the information to criminally investigate or prosecute any alcohol or drug abuse patient.[facility] Care Team (unrecognized sect ion and content) Team Status: Active Member Role/Relationship Status Dates Dr. Hortensia Wells , DO Primary care physician Acti ve Team Status: Inactive Member Role/Relationship Status Dates Dr. Hortensia Wells , Primary care physician Acti ve Start: April 16, 2025 End: April 16, 2025 Dr. Jeffrey Snyder MD Attending physician Active Start: April 16, 2025 End: April 16, 2025 Dr. Jeffrey Snyder MD Referring Provider Active Start: April 16, 2025 End: April 16, 2025 (unrecognized sect ion and content) No Status Records FoundNo Status Records FoundNo Status Records Found INFORMATION SOURCE (unrecogn ized section and content) DATE CREATED AUTHOR 01/08/2024 [facility] ([place]) DATE CREATED AUTHOR AUTHOR'S ORGANIZ ATION 03/23/2025 [facility] DATE CREATED AUTHOR AUTHOR'S ORGANIZ ATION 06/13/2025 [facility] Goals (unrecognized section and content) Goals may be documented in a n alternate section FOR RECORDS PERTAINING TO PATIENTS WHO ARE [...] BE BASED ON THE PRIMARY CLINICAL RECORDS. [employer] provides no warranty or guarantee of the accuracy or completeness of information in this document.
== END | disposition home or self-care (01) ==
PROVIDERS: Referring Provider Nurse Practitioner Family; Visit Provider Nurse Practitioner Family
DX: G47.33 Obstructive sleep apnea (adult) (pediatric) (principal)
CPT/HCPCS: 95811

== ENCOUNTER → 2025-07-31 | Outpatient (CLI) | payer OTHER, SELFPAY | END | disposition home or self-care (01) | LOC: SL 13:28 | PROVIDERS: Visit Provider Nurse Practitioner Family | DX: Z46.89 Encounter for fitting and adjustment of other specified devices (principal) ==